=== PATIENT | male | born 1960 | race Caucasian/White ===

== ENCOUNTER 2019-12-13 22:46 | Emergency (ER) | payer OTHER | END 2019-12-13 23:27 | disposition home or self-care (01) | LOC: EDH 22:46 | DX: K40.30 Unilateral inguinal hernia, with obstruction, without gangrene, not specified as recurrent (principal); I10 Essential (primary) hypertension; Z88.8 Allergy status to other drugs, medicaments and biological substances | CPT/HCPCS: 99281 ==

== ENCOUNTER 2023-02-27 11:41 | Emergency (ER) | payer BC ==
[~2023-02-27] VITALS: Ht 177.8 cm; Wt 64.4 kg
[2023-02-27 12:05] VITALS: BP 138/89; PULSE 94; RESP 17
[2023-02-27] MEDS ORDERED: CYCL5TAB PO (13:14)
[2023-02-27] MEDS ORDERED: ACET-2893 PO (13:14)
[2023-02-27] MEDS ORDERED: ACETAMINOPHEN 325 MG TAB ONE (13:24)
[2023-02-27] MEDS ORDERED: CYCLOBENZAPRINE HCL 10 MG TABLET ONE (13:25)
[2023-02-27] MEDS ORDERED: ACETAMINOPHEN 325 MG TAB PO ONE (13:30)
[2023-02-27] MEDS ORDERED: CYCLOBENZAPRINE HCL 10 MG TABLET PO ONE (13:30)
== END 2023-02-27 13:34 | disposition home or self-care (01) ==
LOC: EDH 11:41
DX: M54.42 Lumbago with sciatica, left side (principal); E78.00 Pure hypercholesterolemia, unspecified; I10 Essential (primary) hypertension; K21.9 Gastro-esophageal reflux disease without esophagitis
CPT/HCPCS: 99281

== ENCOUNTER 2023-02-27 16:46 | Emergency (ER) | payer BC ==
[~2023-02-27] VITALS: Ht 177.8 cm; Wt 64.4 kg
[~2023-02-27 16:46] MED LIST: ACET-2893 PO; CYCL5TAB PO
[2023-02-27 17:18] VITALS: BP 150/93; PULSE 85; RESP 19
== END 2023-02-27 20:37 | disposition left against medical advice (07) ==
LOC: EDH 16:46
DX: M76.02 Gluteal tendinitis, left hip (principal); E78.00 Pure hypercholesterolemia, unspecified; I10 Essential (primary) hypertension; K21.9 Gastro-esophageal reflux disease without esophagitis
CPT/HCPCS: 99281

== ENCOUNTER 2024-07-26 13:05 | Inpatient (IN) | payer BC, OTHER ==
[~2024-07-26] VITALS: Ht 177.8 cm; Wt 60.7 kg
[~2024-07-26 13:05] MED LIST changes: -CYCL5TAB PO; +CYCL5TAB3 PO
--- NOTE | 2024-07-26 13:17 | ERN ---
ED Note History of Present Illness Stated Complaint: LT LEG PAIN AND LT FOOT PAIN Chief Complaint: Lower Extremity Pain/Injury Time Seen by MD: 13:07 Dictation: PATIENT IS A 64-YEAR-OLD MALE BEING SENT FROM DR. MCNEILL OFFICE WITH COMPLAINTS OF PAIN AND INTERMITTENT CLAUDICATION TO HIS LEFT LEG FOR 14 MONTHS. STATES IT IS HURTS WHEN HE IS WALKING AND HE HAS NEVER HAD LOOKED AT UNTIL TODAY. HE STATES HIS LEFT FOOT HAS BEEN DISCOLORED. STATES THE PAIN GETS WORSE AFTER ANY LENGTH OF AMBULATION. HISTORY OF HYPERTENSION CAD AND DIABETES. Allergies: Coded Allergies: No Known Drug Allergies (Unverified Allergy, Unknown, 02/27/23) Home Meds Active Scripts Acetaminophen (Acetaminophen ER) 650 Mg Tablet.er, 650 MG PO TID, #30 TAB Prov:GRISELDA KATZ V [facility] 02/27/23 Cyclobenzaprine HCl (Cyclobenzaprine HCl) 5 Mg Tablet, 5 MG PO TID for 3 Days, #9 TAB Prov:GRISELDA KATZ V [employer] TE[employer] 02/27/23 Past Medical History Past Medical History: CAD, GERD, High Cholesterol, Hypertension Additional Past Medical Hx: HERNIA, CHRONIC BACK PAIN Surgical History: None Social History: Smokers RN Note Reviewed/Agreed w/PFSH: Yes Review of System Dictation CONSTITUTIONAL: NEGATIVE EXCEPT FOR HPI HEAD/FACE: NEGATIVE EXCEPT FOR HPI EENT: NEGATIVE EXCEPT FOR HPI RESPIRATORY: NEGATIVE EXCEPT FOR HPI GASTROINTESTINAL/ABDOMINAL: NEGATIVE EXCEPT FOR HPI GENITOURINARY: NEGATIVE EXCEPT FOR HPI MUSCULOSKELETAL: NEGATIVE EXCEPT FOR HPI LEFT LEG PAIN AND CLAUDICATION INTEGUMENTARY: NEGATIVE EXCEPT FOR HPI NEUROLOGICAL/PSYCH: NEGATIVE EXCEPT FOR HPI HEMATOLOGIC/LYMPHATIC: NEGATIVE EXCEPT FOR HPI ALL SYSTEMS NEGATIVE, EXCEPT NOTED ABOVE. 13 POINT REVIEW OF SYSTEMS ASSESSED AND ALL NEGATIVE EXCEPT FOR ABOVE. Initial Vital Sign VS Vital Signs Date Time Temp Pulse Resp B/P (MAP) Pulse Ox O2 Delivery O2 Flow Rate FiO2 07/26/24 13:07 97.0 85 20 129/79 99 0 07/26/24 13:36 Room Air* 21 Physical Exam Dictation VITAL SIGNS REVIEWED GENERAL APPEARANCE: ALERT, ORIENTED X 3, MODERATE ACUTE DISTRESS, WELL DEVELOPED, NOURISHED. HEAD AND FACE: NON-TRAUMATIC. EYES: PERRL, PINK CONJUNCTIVAS, EYELID NO TRAUMA, ANTERIOR CHAMBER WITH ARCUS SENILIS. EARS: PINNAS INTACT AND NO SIGNS OF TRAUMA OR ERYTHEMA EAR CANALS CLEAR AND NO DISCHARGE TM NO ERYTHEMA NOSE: NO DISCHARGE, NO BLEEDING. OROPHARYNX: MOUTH NORMAL, TONGUE PINK, PHARYNX CLEAR,NO ERYTHEMA, TONSILS NO EXUDATES, NO ABSCESSES NOTED, MUCOUS MEMBRANE MOIST NECK: SUPPLE, NON-TENDER, NO THYROMEGALY, NO MASSES, NO JVD, NO BRUITS BREAST:DEFERRED CHEST:NO TENDERNESS, NO CREPITUS, NO PARADOXICAL MOVEMENT, NO RETRACTIONS LUNGS:CLEAR, WELL-VENTILATED, SYMMETRIC, NO RALES, NO WHEEZING, NO RHONCHI, NO STRIDOR, GOOD BREATH SOUNDS BILATERALLY HEART: REGULAR RATE, REGULAR RHYTHM, NO MURMUR, NO GALLOPS VASCULAR: NO PERIPHERAL EDEMA, LEFT LEG WARM TO TOUCH, UNABLE TO PALPATE DISTAL PULSES. CLUBBING NOTED TO TOES LEG IS WARM ABDOMEN: SOFT, POSITIVE BOWEL SOUNDS, NONDISTENDED, NO GUARDING, NONTENDER, NO REBOUND, NO MASSES NO HEPATOMEGALY, NO SPLENOMEGALY, NO SCHMITZ'S SIGN, NO HERNIAS. RECTAL: DEFERRED GENITAL: DEFERRED NEUROLOGICAL: NORMAL SPEECH, MOTOR FUNCTION INTACT, SENSORY FUNCTION INTACT MUSCULOSKELETAL: NECK NONTENDER, FULL RANGE OF MOTION, BACK NONTENDER, FULL RANGE OF MOTION, EXTREMITIES: NONTENDER, FULL RANGE OF MOTION SKIN: COLOR PINK, DRY, NO TURGOR, NO RASH, NO LACERATIONS, NO ABRASIONS, NO CONTUSIONS. LYMPHATIC: DEFERRED Results (Laboratory/Radiology) Laboratory/Radiology Laboratory Tests Test 07/26/24 13:20 White Blood Count 6.5 K/uL (4.8-10.8) Red Blood Count 4.74 MIL/uL (4.50-6.20) Hemoglobin 14.8 g/dL (14.0-18.0) Hematocrit 44.3 % (42-54) Mean Corpuscular Volume 93.5 fL (79-99) Mean Corpuscular Hemoglobin 31.2 pg (27.0-33.0) Mean Corpuscular Hemoglobin Concent 33.4 g/dL (32.0-36.0) Red Cell Distribution Width 15.6 % (11.0-15.5) H Platelet Count 307 K/uL (130-400) Mean Platelet Volume 9.2 fL (7.5-10.5) Immature Granulocyte % (Auto) 0.2 % (0-1) Neutrophils (%) (Auto) 72.8 % (40.0-77.0) Lymphocytes (%) (Auto) 15.6 % (21.0-51.0) L Monocytes (%) (Auto) 8.8 % (3.0-13.0) Eosinophils (%) (Auto) 1.7 % (0.0-8.0) Basophils (%) (Auto) 0.9 % (0.0-5.0) Neutrophils # (Auto) 4.7 K/uL (1.8-7.7) Lymphocytes # (Auto) 1.0 K/uL (1.0-4.8) Monocytes # (Auto) 0.6 K/uL (0.1-1.0) Eosinophils # (Auto) 0.11 K/uL (0.00-0.70) Basophils # (Auto) 0.06 K/uL (0.00-0.20) Absolute Immature Granulocyte (auto 0.01 K/uL (0-1) Nucleated Red Blood Cells 0.0 % (0.0-0.19) Prothrombin Time 10.1 SEC (9.6-11.6) Prothromb Time International Ratio 0.95 (0.85-1.15) Activated Partial Thromboplast Time 28.0 SEC (26.3-35.5) Sodium Level 139 mmol/L (136-145) Potassium Level 3.6 mmol/L (3.5-5.1) Chloride Level 103 mmol/L (101-111) Carbon Dioxide Level 27 mmol/L (21-32) Blood Urea Nitrogen 9 mg/dL (7-18) Creatinine 0.8 mg/dL (0.5-1.3) Glomerular Filtration Rate Calc 100 mL/min (>90) Random Glucose 104 mg/dL (70-105) Total Calcium 9.2 mg/dL (8.5-10.1) Troponin I High Sensitivity 5 ng/L (4-75) US ARTERIAL UNILA LOW EXT DUPL HISTORY: Left lower extremity pain COMPARISON: None TECHNIQUE: Left lower extremity arterial Doppler ultrasound study was performed. FINDINGS: Abnormal monophasic arterial waveforms are noted in the left common femoral, deep femoral, superficial femoral, popliteal, posterior tibial and dorsalis pedal arteries. On the left, the peak systolic velocity of the common femoral artery is 31 cm/s, the proximal femoral artery is 19 cm/s, the mid femoral artery is 43 cm/s, the distal femoral artery is 29 cm/s, the proximal popliteal artery is 24 cm/s, the distal popliteal artery is 75 cm/s, the anterior tibial artery is 12 cm/s, the posterior tibial artery artery is 10 cm/s,and the dorsalis pedal artery is 10 cm/s. IMPRESSION: 1. Atherosclerotic disease. 2. Abnormal monophasic arterial waveforms are noted of the left lower extremity artery system. Labs Reviewed?: Yes EKG Comment: EKG NORMAL SINUS RHYTHM/HEART RATE 61/AXIS NORMAL/NO ECTOPY ED Course ED Course Orders Procedure Category Date Status Time Us Arterial Unila Low US 07/26/24 Resulted Ext Dupl 13:11 Pt And Ptt LAB 07/26/24 Complete 13:11 Cbc With Differential LAB 07/26/24 Complete 13:11 Troponin I High LAB 07/26/24 Complete Sensitivity 13:11 Urinalysis Profile LAB 07/26/24 Logged 13:11 12 Lead Ekg Tracing- EKG 07/26/24 Complete Technical 13:11 Basic Metabolic Panel LAB 07/26/24 Complete 13:11 Morphine 2mg Syg PHA 07/26/24 Complete (Morphine 2mg Syg) 13:30 Ondansetron 4mg Inj PHA 07/26/24 Complete (Zofran 4mg Inj) 13:30 Current Medications Medications (Trade) Dose Ordered Sig/Mari Route PRN Reason Start Time Stop Time Status Last Admin Dose Admin Morphine Sulfate (morPHINE 2MG SYG) 2 mg ONCE ONCE IVP 07/26/24 13:30 07/26/24 13:31 DC 07/26/24 14:53 Ondansetron HCl (zoFRAN 4MG INJ) 4 mg ONCE ONCE IVP 07/26/24 13:30 07/26/24 13:31 DC 07/26/24 14:53 Vital Signs Date Time Temp Pulse Resp B/P (MAP) Pulse Ox O2 Delivery O2 Flow Rate FiO2 07/26/24 13:36 97.0 85 20 129/79 99 Room Air* 0 21 07/26/24 13:07 97.0 85 20 129/79 99 0 1445/PATIENT HAS MONOPHASIC FLOW TO THE LEFT LEG WITH CLAUDICATION WITH PID PATIENT WILL BE ADMITTED TO THE HOSPITAL 1515/SPOKE WITH CAUTION INHALATION THERAPY TEACHER HOSPITALIST AND REVIEWED LABS EKG EKG SHE AGREED TO ADMIT PATIENT TO THE HOSPITAL. HEART Score Response (Comments) Value History: Low suspicion (0) 0 Age: 45-65yrs (+1) 1 Risk Factors: 1-2 risk factors (+1) 1 Initial Troponin: Normal limit (0) 0 Total 2 Medical Decision Making MDM MDM: DIFFERENTIAL DIAGNOSIS: CLAUDICATION/ISCHEMIA/ARTERIAL OCCLUSION/UNCONTROLLED DIABETES/UTI/SEPSIS/ARRHYTHMIA RATIONALE: TESTS CONSIDERED AND ORDERED SECONDARY TO SHARED DECISION MAKING INCLUDE: LABS, ECG AND RADIOLOGY PREVIOUS OUTSIDE RECORDS REVIEWED: OLD ER VISITS. RISK OF COMPLICATION AND/OR MORBIDITY OR MORTALITY OF PATIENT MANAGEMENT: N MODERATE MEDICATIONS-PER MEDICATION RECONCILIATION NEED FOR HOSPITALIZATION: PATIENT DOES MEET CRITERIA FOR HOSPITALIZATION. PATIENT WILL BE ADMITTED FOR ANTICOAGULATION AND CARDIOLOGY CONSULTATION NEED FOR EMERGENCY MAJOR/MINOR SURGERY: NO THERE ARE NO SOCIAL CONCERNS WITH THIS PATIENT. TOBACCO ABUSE PRESCRIPTION DRUG MANAGEMENT PRESCRIPTIONS WILL INCLUDE SYMPTOMATIC CARE PATIENT'S PRIOR EXTERNAL MEDICAL RECORDS FROM OTHER ER VISITS WERE REVIEWED BY ME INDICATED. PRIOR TESTING AND RESULTS FROM PREVIOUS VISITS WERE REVIEWED. PRIOR TESTS WERE TAKEN INTO ACCOUNT WITH MEDICAL DECISION MAKING AND RESOURCE UTILIZATION, INDEPENDENT HISTORIAN/HISTORIANS WERE USED TO OBTAIN COMPLETE MEDICAL HISTORY. I INDEPENDENTLY INTERPRETED THE TEST THAT WERE PERFORMED, RESULTS WERE REVIEWED BY ME AND CONSIDERED FINDINGS ON RADIOLOGY IF ORDERED. MEDICAL MANAGEMENT AND EXAMINATION INTERPRETATION DISCUSSIONS WERE HAD BY ME WITH OTHER QUALIFIED HEALTHCARE PROFESSIONALS INDICATED FOR THE PATIENT'S CARE. DX & DISP Disposition: Inpatient Decision to Admit Time: 14:56 Departure Impression: Primary Impression: Claudication in peripheral vascular disease Additional Impressions: Tobacco abuse, Diabetes mellitus Condition: Stable Referrals: SELF,REFERRAL (PCP) Time of Disposition: 14:56 I have reviewed the case, and I agree with, Diagnosis and Plan ROBBIE MUNGUIA NP Jul 26, 2024 13:17
--- NOTE | 2024-07-26 13:36 | EKG ---
[facility] Test Date: 2024-07-26 Test Time: 13:23:58 Pat Name: KATARZYNA ROBBINS Department: ED Room: 432 Gender: M Hog Raiser: [id number] [phone] [id number] Requested By: ROBBIE MUNGUIA Order Number: [id number] Reading MD: Brad Ortiz Measurements Intervals Topmost Rate: 61 P: 86 UT: 158 QRS: 75 QRSD: 86 T: 58 QT: 405 QTc: 407 Interpretive Statements Sinus rhythm No previous ECG available for comparison Electronically Signed On 07-27-2024 07:01:42 CDT by Brad Ortiz Please click the below link to view image of tracing.
[2024-07-26 14:06] LABS: BASOPHILS # (AUTO) 0.06 K/uL (0.00-0.20); BASOPHILS % (AUTO) 0.9 % (0.0-5.0); EOSINOPHILS # (AUTO) 0.11 K/uL (0.00-0.70); EOSINOPHILS % (AUTO) 1.7 % (0.0-8.0); HEMATOCRIT 44.3 % (42-54); IMMATURE GRANULOCYTE ABSOLUTE 0.01 K/uL (0-1); LYMPHOCYTES % (AUTO) 15.6 % (21.0-51.0); MEAN CORPUSCULAR HEMOGLOBIN 31.2 pg (27.0-33.0); MEAN CORPUSCULAR HGB CONC 33.4 g/dL (32.0-36.0); MEAN CORPUSCULAR VOLUME 93.5 fL (79-99); MONOCYTES # (AUTO) 0.6 K/uL (0.1-1.0); MONOCYTES % (AUTO) 8.8 % (3.0-13.0); NEUTROPHILS # (AUTO) 4.7 K/uL (1.8-7.7); NEUTROPHILS % (AUTO) 72.8 % (40.0-77.0); PLATELET COUNT (AUTO) 307 K/uL (130-400); RED BLOOD CELL COUNT(AUTO) 4.74 MIL/uL (4.50-6.20); RED CELL DISTRIBUTION WIDTH 15.6 % (11.0-15.5); WHITE BLOOD COUNT (AUTO) 6.5 K/uL (4.8-10.8)
--- NOTE | 2024-07-26 14:10 | HMCIMG ---
US ARTERIAL UNILA LOW EXT DUPL HISTORY: Left lower extremity pain COMPARISON: None TECHNIQUE: Left lower extremity arterial Doppler ultrasound study was performed. FINDINGS: Abnormal monophasic arterial waveforms are noted in the left common femoral, deep femoral, superficial femoral, popliteal, posterior tibial and dorsalis pedal arteries. On the left, the peak systolic velocity of the common femoral artery is 31 cm/s, the proximal femoral artery is 19 cm/s, the mid femoral artery is 43 cm/s, the distal femoral artery is 29 cm/s, the proximal popliteal artery is 24 cm/s, the distal popliteal artery is 75 cm/s, the anterior tibial artery is 12 cm/s, the posterior tibial artery artery is 10 cm/s,and the dorsalis pedal artery is 10 cm/s. IMPRESSION: 1. Atherosclerotic disease. 2. Abnormal monophasic arterial waveforms are noted of the left lower extremity artery system.
[2024-07-26 14:16] LABS: INR 0.95 (0.85-1.15); PROTHROMBIN TIME 10.1 SEC (9.6-11.6)
[2024-07-26 14:17] LABS: CREATININE 0.8 mg/dL (0.5-1.3); POTASSIUM 3.6 mmol/L (3.5-5.1)
[2024-07-26] MEDS: morPHINE 2 MG SYG IVP ONE (14:53)
[2024-07-26] MEDS: ondanSETRON 4MG INJ IVP ONE (14:53)
[2024-07-26] MEDS ORDERED: ondanSETRON 4MG INJ IVP PRN (15:30)
[2024-07-26] MEDS ORDERED: PoTASSium chloRIDE 10MEQ/100ML 100 ML IV PRN (16:00)
[2024-07-26] MEDS ORDERED: GLUCAGON 1MG KIT 1 MG ML IM PRN (16:00)
[2024-07-26] MEDS ORDERED: MAGNESIUM 2GM PREMIX 50ML 50 ML IV PRN (16:00)
[2024-07-26] MEDS ORDERED: PoTASSium chloRIDE 20MEQ ER 20 MEQ ERTAB PO PRN (16:00)
[2024-07-26] MEDS ORDERED: morPHINE 2 MG SYG IVP PRN (16:00)
[2024-07-26] MEDS ORDERED: DEXTROSE 50%-WATER 50 ML DISP.SYRIN IV PRN (16:00)
[2024-07-26] MEDS ORDERED: PoTASSium chl 10% ELIXIR 20MEQ 20 MEQ/15 ML UDCUP PO PRN (16:00)
--- NOTE | 2024-07-26 16:12 | NUR ---
CARDIOLOGY DR CHIRINOS MADE AWARE OF PT.
[2024-07-26] MEDS ORDERED: DiphenhydrAMINE HCL 50 MG/ML VIAL IV PRN (16:30)
[2024-07-26] MEDS ORDERED: guaiFENesin-DM 200/20MG 10ML PO PRN (16:30)
[2024-07-26] MEDS ORDERED: NITROGLYCERIN 0.4 MG SL TAB SL PRN (16:30)
[2024-07-26] MEDS: INSULIN humuLIN R 100 UNIT/ML 3ML SQ SCH (16:30)
[2024-07-26] MEDS ORDERED: FAMOTIDINE 20MG VIAL IV PRN (16:30)
[2024-07-26] MEDS ORDERED: acetaMINOPHEN 325 MG TAB PO PRN ×3 (16:30)
[2024-07-26] MEDS ORDERED: MAG/ALUM/SIMETH 30 ML UDCUP PO PRN (16:30)
[2024-07-26] MEDS ORDERED: hydrALAZine 20MG/ML VIAL IV PRN (16:30)
[2024-07-26] MEDS ORDERED: LACTULOSE 20 GM/30 ML UDCUP PO PRN (16:30)
--- NOTE | 2024-07-26 16:58 | HMCIMG ---
CHEST 1VW HISTORY: Congestion COMPARISON: None FINDINGS: A frontal projection of the chest was obtained. No acute pulmonary infiltrates is seen. The heart is normal in size. Prominent interstitial markings are seen. Mild degenerative changes are seen. No evidence of aortic calcification is seen. IMPRESSION: 1. No acute pulmonary infiltrate is seen.
--- NOTE | 2024-07-26 17:04 | NUR ---
RANDA GOSS,[facility],AT BEDSIDE.
[2024-07-26] MEDS: ketOROlac 15MG/ML VIAL (15MG/ML) IV PRN (17:35)
--- NOTE | 2024-07-26 17:47 | CONS ---
[facility] CARDIOLOGY CONSULTATION REPORT Cardiology consultation note dictated for Remberto Chirinos MD Date Patient Seen: Jul 26, 2024 Requesting Physician: Sg Castellanos MD Reason for Consultation: PAD History of Present Illness: This is a 64-year-old with a past medical history of hypertension, hyperlipidemia, TIA, COPD, possible hyperthyroidism, left inguinal hernia, active tobacco abuse (5-7 cigarettes per day), and homelessness who was sent to the ED by his primary care physician from at the [facility] for further evaluation of his severe left lower extremity discomfort. Cardiology has been consulted for PAD. The patient endorsed a 14 month course of LLE discomfort that is exacerbated with minimal pressure to his foot and the slightest touch. He has been using a rolling walker to aid in movement. There are no visible wounds noted. There is no palpable or dopplerable DP or PT pulses to the left foot and it is cool to touch. He is unable to move his left foot's toes but is able to move his ankle slightly. He complains of severe pain and tears up with slight pressure to his left foot. Left lower extremity arterial Doppler revealed abnormal monophasic arterial waveforms in the left common femoral, deep femoral, superficial femoral, popliteal, posterior tibial and dorsalis pedal arteries. Past Medical History: As per HPI and summarized below Past Surgical History: None Family History: The patient's mother had history of diabetes mellitus type 2. The patient's grandfather (mother's father) of an unknown cancer. Social History: The patient is currently homeless. Habits: The patient admits to smoking 5-7 cigarettes per day. He admits to 2-3 beers per year. He denies illicit drug use. Home Meds: None Current Meds: Current Medications Medications Dose Ordered Sig/Mari Start Time Stop Time Status Last Admin Insulin Human Regular INSULIN SLIDING SCAL... ACHS 07/26/24 16:30 08/25/24 16:29 Dextrose 50 ml AD PRN 07/26/24 16:00 08/25/24 15:59 Glucagon 1 mg AD PRN 07/26/24 16:00 08/25/24 15:59 Potassium Chloride 100 ml @ 100 mls/hr AD PRN 07/26/24 16:00 08/25/24 15:59 Potassium Chloride 10 meq AD PRN 07/26/24 16:00 08/25/24 15:59 Potassium Chloride 10 meq AD PRN 07/26/24 16:00 08/25/24 15:59 Magnesium Sulfate 50 ml @ 0 mls/hr PROTOCOL PRN 07/26/24 16:00 08/25/24 15:59 Diphenhydramine HCl 25 mg Q6H PRN 07/26/24 16:30 08/25/24 16:29 Acetaminophen 650 mg Q6H PRN 07/26/24 16:30 08/25/24 16:29 Ondansetron HCl 4 mg Q6H PRN 07/26/24 16:30 08/25/24 16:29 Zolpidem Tartrate 5 mg HS PRN 07/26/24 16:30 08/25/24 16:29 Al Hydroxide/Mg Hydroxide 30 ml Q6H PRN 07/26/24 16:30 08/25/24 16:29 Lactulose 20 gm BID PRN 07/26/24 16:30 08/25/24 16:29 Nitroglycerin 0.4 mg PROTOCOL PRN 07/26/24 16:30 08/25/24 16:29 Guaifenesin/ Dextromethorphan 10 ml Q4H PRN 07/26/24 16:30 08/25/24 16:29 Heparin Sodium (Porcine) 5,000 unit BID 07/26/24 21:00 08/25/24 20:59 Acetaminophen 650 mg Q6H PRN 07/26/24 16:30 08/25/24 16:29 Ketorolac Tromethamine 15 mg Q8H PRN 07/26/24 16:30 07/31/24 16:29 Morphine Sulfate 1 mg Q4H PRN 07/26/24 16:30 08/02/24 16:29 Hydralazine HCl 10 mg Q6H PRN 07/26/24 16:30 08/25/24 16:29 Famotidine 20 mg BID 07/26/24 21:00 08/25/24 20:59 Review of Systems: CONST: No fever, fatigue, or weight changes. EYES: No recent vision problems. ENT: No congestion, ear pain, or sore throat. C/V: No chest pain, palpitations, or edema. RESP: No cough, congestion, wheezing or shortness of breath. GI: No abdominal pain, nausea, vomiting, constipation, or diarrhea. : No incontinence or dysuria. SKIN: No rash. NEURO: No headache, focal numbness or weakness, dizziness, or seizures. PSYCH: No depression or anxiety. HEME: No abnormal bruising or bleeding. LYMPH: No swollen glands. Physical Examination: GENERAL: No acute distress. HEAD: Normal with no signs of head trauma. EYES: PERRLA, EOMI, conjunctiva and sclera normal. ENT: Hearing grossly intact, normal oropharynx. NECK: Supple without JVD. There is no tenderness, lymphadenopathy, or masses. No thyromegaly. Normal carotid upstrokes without bruits. LUNGS: Clear breath sounds bilaterally. No wheezes, or rhonchi. HEART: Normal rate and rhythm. Normal S1 and S2 without murmurs, gallop or rub. VASC: There is no palpable or dopplerable DP or PT pulses to the left foot and it is cool to touch. Right DP by dopper only, PT is non-dopplerable. ABD: Bowel sounds normal, soft, nontender, no masses, no organomegaly. No audible bruits. : Not examined LYMPH: No lymphadenopathy noted. EXT: Clubbing noted to fingernails. No cyanosis or edema. SKIN: No rashes or lesions noted. NEURO: Awake, alert, and oriented x3. No focal sensory or strength deficits noted. Vital Signs (last 8hr) Date Time Temp Pulse Resp B/P (MAP) Pulse Ox O2 Delivery O2 Flow Rate FiO2 07/26/24 17:02 69 18 142/80 97 Room Air* 0 21 07/26/24 14:30 64 20 128/82 96 Room Air* 0 21 07/26/24 13:36 97.0 85 20 129/79 99 Room Air* 0 21 07/26/24 13:07 97.0 85 20 129/79 99 0 Laboratory: Hematology Labs: Test 07/26/24 13:20 Range/Units White Blood Count 6.5 4.8-10.8 K/uL Red Blood Count 4.74 4.50-6.20 MIL/uL Hemoglobin 14.8 14.0-18.0 g/dL Hematocrit 44.3 42-54 % Mean Corpuscular Volume 93.5 79-99 fL Mean Corpuscular Hemoglobin 31.2 27.0-33.0 pg Mean Corpuscular Hemoglobin Concent 33.4 32.0-36.0 g/dL Red Cell Distribution Width 15.6 H 11.0-15.5 % Platelet Count 307 130-400 K/uL Mean Platelet Volume 9.2 7.5-10.5 fL Immature Granulocyte % (Auto) 0.2 0-1 % Neutrophils (%) (Auto) 72.8 40.0-77.0 % Lymphocytes (%) (Auto) 15.6 L 21.0-51.0 % Monocytes (%) (Auto) 8.8 3.0-13.0 % Eosinophils (%) (Auto) 1.7 0.0-8.0 % Basophils (%) (Auto) 0.9 0.0-5.0 % Neutrophils # (Auto) 4.7 1.8-7.7 K/uL Lymphocytes # (Auto) 1.0 1.0-4.8 K/uL Monocytes # (Auto) 0.6 0.1-1.0 K/uL Eosinophils # (Auto) 0.11 0.00-0.70 K/uL Basophils # (Auto) 0.06 0.00-0.20 K/uL Absolute Immature Granulocyte (auto 0.01 0-1 K/uL Nucleated Red Blood Cells 0.0 0.0-0.19 % Chemistry Labs: Test 07/26/24 13:20 Range/Units Sodium Level 139 136-145 mmol/L Potassium Level 3.6 3.5-5.1 mmol/L Chloride Level 103 101-111 mmol/L Carbon Dioxide Level 27 21-32 mmol/L Blood Urea Nitrogen 9 7-18 mg/dL Creatinine 0.8 0.5-1.3 mg/dL Glomerular Filtration Rate Calc 100 >90 mL/min Random Glucose 104 70-105 mg/dL Total Calcium 9.2 8.5-10.1 mg/dL Troponin I High Sensitivity 5 4-75 ng/L Coagulation Labs: Test 07/26/24 13:20 Range/Units Prothrombin Time 10.1 9.6-11.6 SEC Prothromb Time International Ratio 0.95 0.85-1.15 Activated Partial Thromboplast Time 28.0 26.3-35.5 SEC Diagnostics / Radiology: Impression and Plan: PAD HTN HLD TIA COPD Possible hyperthyroidism Active tobacco abuse (5-7 cigarettes per day) Homelessness PAD The patient endorsed a 14 month course of LLE discomfort that is exacerbated with minimal pressure to his foot and the slightest touch. He has been using a rolling walker to aid in movement. There are no visible wounds noted. There is no palpable or dopplerable DP or PT pulses to the left foot and it is cool to touch. He is unable to move his left foot's toes but is able to move his ankle slightly. He complains of severe pain and tears up with slight pressure to his left foot. Left lower extremity arterial Doppler revealed abnormal monophasic arterial waveforms in the left common femoral, deep femoral, superficial femoral, popliteal, posterior tibial and dorsalis pedal arteries. -Will start a Heparin infusion, aspirin 81mg daily, atorvastatin 40mg nightly, and clopidogrel 75mg daily -The patient will need a peripheral angiogram. We will have to see which [facility] associate will be available for such procedure. ATTESTATION BY PHYSICIAN I have seen and examined the patient. I reviewed the documentation, medical decision making, and treatment plan as noted by the mid-level provider above. I agree with the findings and plan of care. REMBERTO CHIRINOS MD, [facility] Jul 26, 2024 17:47 REMBERTO CHIRINOS MD Jul 26, 2024 18:10
[2024-07-26 17:54] LABS: APPEARANCE,URINE CLEAR (CLEAR); BILIRUBIN,URINE NEGATIVE (NEGATIVE); COLOR,URINE COLORLESS (YELLOW); GLUCOSE, URINE (UA) NEGATIVE (NEGATIVE); KETONES,URINE NEGATIVE (NEGATIVE); LEUKOCYTE ESTERASE ,URINE NEGATIVE Leu/uL (NEGATIVE); NITRATE,URINE NEGATIVE (NEGATIVE); OCCULT BLOOD,URINE NEGATIVE (NEGATIVE); PH,URINE 6.5 (5.0-8.0); PROTEIN,URINE NEGATIVE (NEGATIVE); UROBILINOGEN,URINE 0.2 mg/dL (0.2-1.0)
[2024-07-26 17:58] LABS: ADD UA MICROSCOPIC NO
[2024-07-26] MEDS ORDERED: morPHINE 2 MG SYG IVP ONE (18:00)
[2024-07-26 18:14] LABS: INFLUENZA TYPE A Negative For Type A (NEGATIVE); INFLUENZA TYPE B Negative For Type B (NEGATIVE)
--- NOTE | 2024-07-26 18:41 | HMCIMG ---
ULTRASOUND VENOUS DOPPLER, BILATERAL LOWER EXTREMITIES INDICATION: Bilateral lower extremity pain and swelling TECHNIQUE: Routine grayscale and color Doppler ultrasound of the bilateral lower extremity veins performed. COMPARISON: No priors. FINDINGS: The demonstrated veins of the bilateral lower extremity including the common femoral vein, femoral vein, and popliteal vein are associated with normal compressibility, augmentation, and flow. Normal respiratory variation was identified. No evidence for echogenic intraluminal thrombus formation. IMPRESSION: No sonographic evidence for deep venous thrombosis within the bilateral lower extremity veins.
--- NOTE | 2024-07-26 19:49 | NUR ---
HEPARIN PROTOCOL INITIATED AGER TENDERPorfirio on unit. Phone call placed to Maria Kapoor with [facility] to clarify Heparin orders. Per Maria, Heparin bolus to be administered. Order entered. Pharmacy contacted to release Heparin from [facility] for administration. Radha with pharmacy, will process now. Two nurse to initiate Heparin bolus and starting dose
[2024-07-26 19:50] VITALS: BP 150/69; PULSE 58; RESP 20; TEMP 98
--- NOTE | 2024-07-26 19:51 | HP ---
[facility] HISTORY [facility] PHYSICAL Date of Service: Jul 26, 2024 Time of Service: 19:42 PCP:Dr Deena Ivy Admitting: Dr Castellanos, Allergies: No Allergy Information Available, No Known Drug Allergies HISTORY OF PRESENT ILLNESS: [ Patient is 64 years old male with a past medical history of hypertension, hyperlipidemia, TIA, COPD, hypothyroidism, diabetes, left inguinal hernia, ulcerative colitis, BPH, who came to emergency department with a complaint of left lower extremity discomfort for the past 14 months. Patient stated that yesterday he went to his PCP in [facility] on [address] for further evaluation of the left lower extremity discomfort. The patient was evaluated and was instructed to come to emergency department for further evaluation/recommendations. Left lower extremity discomfort is exacerbated with minimal pressure to his foot and slightest touch. Patient has been using a rolling walker to help with the ambulation. No visible wounds noted besides a dry scab on the bottom of the toes and between the toes. No palpable or dopplerable DP or PT pulses to the left foot and that is cool to touch. Patient is able to move his left foot but not as much as he is able to move his right. Left lower extremity Doppler reveals abnormal monophasic arterial waveforms in the left common femoral, deep femoral and superficial femoral, popliteal and posterior tibial and dorsalis pedis arteries. Chest x-ray negative. Venous Doppler negative. 2D echo pending. Patient was evaluated by the art display maker and at this moment they recommending angiogram with Dr. Reyes on . Most recent vital signs temperature 97.0 pulse 75 respiration 18 blood pressure 135/78, patient is satting 99% on room air. WBC 6.5 hemoglobin 14.8 hematocrit 44.3 platelets 307. UA negative. Influenza a and influenza B negative. Sodium 139 potassium 3.6 CO2 27 BUN nine creatinine 0.8 GFR 100 random glucose 104 total calcium 9.2 troponin negative x1. Patient will be admitted under hospitalist care for further amauri luation/recommendations. We will continue to monitor patient. A.m. labs] REVIEW OF SYSTEMS CONSTITUTIONAL: Denies fevers, chills, or night sweats. No unintentional weight loss reported. NEUROLOGICAL: Denies headache, amaurosis fugax, motor weakness, sensory deficit, vertigo/spinning sensation, gait abnormalities, or tremors. ENT: No hearing loss, otalgia, otorrhea, rhinitis, rhinorrhea, hoarseness, or sore throat. CARDIOVASCULAR: Denies any exertional angina, dyspnea on exertion, orthopnea, paroxysmal nocturnal dyspnea, palpitations, life-threatening arrhythmias, claudication. PULMONARY: Denies any shortness of breath, cough, phlegm/sputum, hemoptysis, pleuritic chest pain. SLEEP: Denies morning headaches, daytime somnolence or napping. Denies difficulty falling asleep, staying asleep, waking from sleep. Denies knowledge of snoring. GASTROINTESTINAL: Denies any type of dysphagia to either liquids or solids. Denies nausea, vomiting, pyrosis, early satiety, abdominal pain, diarrhea, constipation, or changes in stool consistency or caliber. Denies coffee-ground emesis, hematemesis, hematochezia, or melanotic stools. GENITOURINARY: Denies frequency, urgency, nocturia, hematuria or incontinence (Storage/Irritative symptoms.) Low urinary stream, straining to void, urinary intermittency or hesitancy, splitting of the voiding stream, terminal dribbling. ENDOCRINOLOGIC: Denies polyuria, polydipsia, polyphagia or heat/cold intolerances. HEMATOLOGIC: Denies thrombophilia/previous clots, or coagulopathy/bleeding disorders. ONCOLOGIC: Denies personal history of malignancy. DERMATOLOGIC: Denies rashes or pruritus. Complains of skin dryness on the left foot close to the toes PSYCHIATRIC: Denies any suicidal or homicidal ideation. Denies hallucinations. PAST MEDICAL HISTORY: [ Prediabetes, hypertension, hyperlipidemia, malnutrition, left inguinal hernia, ulcerative colitis, TIA, BPH, COPD, hyperthyroidism] PAST SURGICAL HISTORY: [ ] PAST SOCIAL HISTORY: [Patient stated that he smokes about one pack Per two weeks. Patient admits to drinking two maybe three beers per year. Patient denies any drug illicit ] FAMILY HISTORY: [ Patient stated that he is homeless [facility] [place]. Patient uses rolling walker for ambulation. ] Coded Allergies: No Known Drug Allergies (Unverified Allergy, Unknown, 02/27/23) PHYSICAL EXAM GENERAL APPEARANCE: The patient is awake, alert, and oriented, in no acute cardiopulmonary distress. NEUROLOGICAL: Cranial nerves II-XII grossly intact. Motor is 5/5 in bilateral upper and lower extremities proximal to distal. No sensory deficits. HEENT: Face is symmetric. Pupils are equal and reactive. Extraocular movements are intact. NECK: Supple. No JVD. No thyromegaly. No submental, submandibular, pre- /postauricular, occipital or supraclavicular lymphadenopathy. CHEST: Normal chest expansion. No Telemetry. LUNGS: Absence of any rales, rhonchi or any wheezing. CARDIOVASCULAR: Regular. S1 and S2 normal. No appreciable rubs, murmurs or gallops. ABDOMEN: Soft, nontender, and nondistended. There is no rebound, voluntary guarding, or rigidity. : Deferred. No Dumont. EXTREMITIES: Non-edematous and not cyanotic. No clubbing. Good capillary refill. SKIN: No skin breakdown. Vital Sign (Last 24 Hours) 07/26/24 17:35 Temp 97.0 Pulse 75 Resp 18 B/P (MAP) 135/78 Pulse Ox 99 O2 Delivery Room Air* O2 Flow Rate 0 FiO2 21 LABS: Laboratory: Test 07/26/24 17:37 07/26/24 17:30 07/26/24 13:20 Range/Units Whole Blood Glucose 97 70-110 MG/DL Urine Color COLORLESS YELLOW Urine Appearance CLEAR CLEAR Urine pH 6.5 5.0-8.0 Urine Specific [place] 1.005 1.001-1.031 Urine Protein NEGATIVE NEGATIVE mg/dL Urine Glucose (UA) NEGATIVE NEGATIVE mg/dL Urine Ketones NEGATIVE NEGATIVE mg/dL Urine Occult Blood NEGATIVE NEGATIVE Urine Nitrate NEGATIVE NEGATIVE Urine Bilirubin NEGATIVE NEGATIVE mg/dL Urine Urobilinogen 0.2 0.2-1.0 mg/dL Urine Leukocyte Esterase NEGATIVE NEGATIVE Wm/uL Influenza Type A Antigen Negative For Type A NEGATIVE Influenza Type B Antigen Negative For Type B NEGATIVE White Blood Count 6.5 4.8-10.8 K/uL Red Blood Count 4.74 4.50-6.20 MIL/uL Hemoglobin 14.8 14.0-18.0 g/dL Hematocrit 44.3 42-54 % Mean Corpuscular Volume 93.5 79-99 fL Mean Corpuscular Hemoglobin 31.2 27.0-33.0 pg Mean Corpuscular Hemoglobin Concent 33.4 32.0-36.0 g/dL Red Cell Distribution Width 15.6 H 11.0-15.5 % Platelet Count 307 130-400 K/uL Mean Platelet Volume 9.2 7.5-10.5 fL Immature Granulocyte % (Auto) 0.2 0-1 % Neutrophils (%) (Auto) 72.8 40.0-77.0 % Lymphocytes (%) (Auto) 15.6 L 21.0-51.0 % Monocytes (%) (Auto) 8.8 3.0-13.0 % Eosinophils (%) (Auto) 1.7 0.0-8.0 % Basophils (%) (Auto) 0.9 0.0-5.0 % Neutrophils # (Auto) 4.7 1.8-7.7 K/uL Lymphocytes # (Auto) 1.0 1.0-4.8 K/uL Monocytes # (Auto) 0.6 0.1-1.0 K/uL Eosinophils # (Auto) 0.11 0.00-0.70 K/uL Basophils # (Auto) 0.06 0.00-0.20 K/uL Absolute Immature Granulocyte (auto 0.01 0-1 K/uL Nucleated Red Blood Cells 0.0 0.0-0.19 % Prothrombin Time 10.1 9.6-11.6 SEC Prothromb Time International Ratio 0.95 0.85-1.15 Activated Partial Thromboplast Time 28.0 26.3-35.5 SEC Sodium Level 139 136-145 mmol/L Potassium Level 3.6 3.5-5.1 mmol/L Chloride Level 103 101-111 mmol/L Carbon Dioxide Level 27 21-32 mmol/L Blood Urea Nitrogen 9 7-18 mg/dL Creatinine 0.8 0.5-1.3 mg/dL Glomerular Filtration Rate Calc 100 >90 mL/min Random Glucose 104 70-105 mg/dL Total Calcium 9.2 8.5-10.1 mg/dL Troponin I High Sensitivity 5 4-75 ng/L Current Medications Medications (Trade) Dose Ordered Sig/Mari Route PRN Reason Start Time Stop Time Status Last Admin Dose Admin Acetaminophen (TYLenol 325MG TAB) 650 mg Q4H PRN PO MILD PAIN (1-3) 07/26/24 16:30 07/26/24 16:10 DC Acetaminophen (TYLenol 325MG TAB) 650 mg Q6H PRN PO MILD PAIN (1-3) 07/26/24 16:30 08/25/24 16:29 Acetaminophen (TYLenol 325MG TAB) 650 mg Q6H PRN PO TEMPERATURE GREATER THAN 101.5 07/26/24 16:30 08/25/24 16:29 Al Hydroxide/Mg Hydroxide (MAALox PLUS 30ML) 30 ml Q6H PRN PO INDIGESTION 07/26/24 16:30 08/25/24 16:29 Aspirin (Aspirin 81mg Ec Tab) 81 mg DAILY PO 07/27/24 09:00 08/26/24 08:59 Atorvastatin Calcium (LIPItor 40MG) 40 mg HS PO 07/26/24 21:00 08/25/24 20:59 Clopidogrel Bisulfate (plaVIX 75MG) 75 mg DAILY PO 07/27/24 09:00 08/26/24 08:59 Dextrose (D50w) 50 ml AD PRN IV HYPOGLYCEMIA PROTOCOL 07/26/24 16:00 08/25/24 15:59 Diphenhydramine HCl (BENAdryl INJ) 25 mg Q6H PRN IV SEVERE ITCHING/RASH 07/26/24 16:30 08/25/24 16:29 Famotidine (Pepcid 20mg Vial) 20 mg BID IV 07/26/24 21:00 08/25/24 20:59 Famotidine (Pepcid 20mg Vial) 20 mg BID PRN IV NAUSEA/VOMITING 07/26/24 16:30 07/26/24 16:10 DC Glucagon (Glucagon 1mg Kit) 1 mg AD PRN IM HYPOGLYCEMIA PROTOCOL 07/26/24 16:00 08/25/24 15:59 Guaifenesin/ Dextromethorphan (RobiTUSSin DM 200/20MG 10ML) 10 ml Q4H PRN PO COUGH 07/26/24 16:30 08/25/24 16:29 Heparin Sodium (Porcine) (HEParin 5,000 UNIT VIAL) *calculation based on ACTUAL B... AD PRN IV HEPARIN PROTOCOL 07/26/24 20:30 08/25/24 20:29 Heparin Sodium (Porcine) (HEParin 5,000 UNIT VIAL) 5,000 unit BID SQ 07/26/24 21:00 07/26/24 17:20 DC Heparin Sodium/ Dextrose 250 ml @ 0 mls/hr PROTOCOL IV 07/26/24 17:30 08/25/24 17:29 Hydralazine HCl (APRESOLine 20MG INJ) 10 mg Q6H PRN IV For:SBP above 160;DBP above 90 07/26/24 16:30 08/25/24 16:29 Insulin Human Regular (humuLIN R 100 UNIT/ML 3ML) INSULIN SLIDING SCAL... ACHS SQ 07/26/24 16:30 08/25/24 16:29 Ketorolac Tromethamine (toRADol) 15 mg Q8H PRN IV MODERATE PAIN (4-6) 07/26/24 16:30 07/31/24 16:29 07/26/24 17:35 15 MG Lactulose (Constulose 20gm/ 30ml Udcup) 20 gm BID PRN PO CONSTIPATION 07/26/24 16:30 08/25/24 16:29 Magnesium Sulfate 50 ml @ 0 mls/hr PROTOCOL PRN IV other 07/26/24 16:00 08/25/24 15:59 Morphine Sulfate (morPHINE 2MG SYG) 1 mg Q4H PRN IVP SEVERE PAIN (7-10) 07/26/24 16:30 08/02/24 16:29 Morphine Sulfate (morPHINE 2MG SYG) 2 mg Q6H6 PRN IVP SEVERE PAIN (7-10) 07/26/24 16:00 07/26/24 16:10 DC Nitroglycerin (Nitrostat) 0.4 mg PROTOCOL PRN SL CHEST PAIN 07/26/24 16:30 08/25/24 16:29 Ondansetron HCl (zoFRAN 4MG INJ) 4 mg Q6H PRN IV NAUSEA/VOMITING 07/26/24 16:30 08/25/24 16:29 Ondansetron HCl (zoFRAN 4MG INJ) 4 mg Q6H PRN IVP NAUSEA/VOMITING 07/26/24 15:30 07/26/24 16:10 DC Potassium Chloride 100 ml @ 100 mls/hr AD PRN IV POTASSIUM PROTOCOL 07/26/24 16:00 08/25/24 15:59 Potassium Chloride (K-Dur/Klor-Con 20meq) 10 meq AD PRN PO POTASSIUM PROTOCOL 07/26/24 16:00 08/25/24 15:59 Potassium Chloride (KCl 10% Elixir 20meq/15ml) 10 meq AD PRN PO POTASSIUM PROTOCOL 07/26/24 16:00 08/25/24 15:59 Zolpidem Tartrate (AmbIEN) 5 mg HS PRN PO INSOMNIA 07/26/24 16:30 08/25/24 16:29 DIAGNOSTICS / RADIOLOGY: [ ] ASSESSMENT: [ Severe PAD with claudication POA Uncontrolled HTN Severe malnutrition Prediabetes Hyperlipidemia Left inguinal hernia Also lot colitis BPH History of TIA COPD not exacerbation hyperthyroidism Active tobacco abuse (5-7 cigarettes per day) Homelessness ] PLAN: [Admit to: Medical-surgical floor Consults: Sr. Merchandise Planner Antibiotics: None Tests: 2D echo Heparin drip NEURO: Minimize central acting medications as possible. Fall Precautions. Well lighted room through the day and minimize interruptions through the night to prevent acute delirium. PULMONARY: Chest x-ray negative Supplemental 02 as needed BiPAP as necessary, for respiratory distress Titrate Fio2 to keep Spo2 > or = 90% DuoNebs and CPT as needed IS hourly while awake for pulmonary hygiene Out of bed to chair as tolerated VAP Bundle Maintain aspiration precautions at all times CARDIOVASCULAR: Possible angiogram pending with Dr. Reyes 07/28/2024 Arterial Doppler abnormal Venous Doppler negative 2D echo pending Follow hemodynamics. Vital signs per facility protocol GI & NUTRITION: Continue nutritional support Aspirations precautions Prokinetic agents and laxatives as needed KIDNEYS & ELECTROLYTES: Strict monitoring of intake and output Daily weights Avoid nephrotoxic agents Monitor electrolytes and replace as needed Goal urine output of 30mL/hr or 0.5mL/kg/hr Medications to be dosed according to renal function. Avoid contrast if possible ENDOCRINE: Maintain blood glucose between 100-180 at all times. Insulin sliding scale for blood glucose management Hypoglycemia and hyperglycemia protocol in place INFECTIOUS DISEASE: Trend temperature, WBC and procalcitonin level Follow cultures, deescalate antibiotics as soon as possible. Panculture if new onset fever HEMATOLOGY & COAGULATION: Monitor H&H. Keep Hgb > 7 Transfuse 1 unit of PRBC for Hgb < 7 Transfuse 1 pack of platelets of platelets < 20, 000 Watch for any signs and symptoms of bleeding SKIN: Pressure ulcer prevention per facility protocol Specialty mattress as needed Treatment plan discussed with patient and family at the bedside Medications to be reconciled once obtained by patient and/or family and available to be reconciled in computer p.r.n. medication for pain nausea and vomiting Questions were answered We will continue to monitor the patient closely Sizing Sponger for disposition Rehab: PT/OT GI: PPI DVT: SCD's Code Status: Full Resuscitation Disposition: TBD Prognosis: Guarded ] ADVANCED CARE PLANNING 1. Which of the following were discussed? Hospice Care - Yes / No Therapeutic options - Yes / No Advance Directives - Yes / No Other discussions - 2. Discussed with who? Patient 3. Voluntary nature of this service was explained to the patient? Yes / No 4. Amount of time spent - __ more than 35 minute 5. Reviewed by Physician? (if this service was performed by NPP) Yes / No ATTESTATION BY PHYSICIAN I have seen and examined the patient. I reviewed the documentation, medical decision making, and treatment plan as noted by the mid-level provider above. I agree with the findings and plan of care. BERNADETTE CASTELLANOS MD, KATARZYNA B PACKAGE CLERK Jul 26, 2024 19:51
[2024-07-26 20:04] LABS: BASOPHILS # (AUTO) 0.06 K/uL (0.00-0.20); BASOPHILS % (AUTO) 0.9 % (0.0-5.0); EOSINOPHILS # (AUTO) 0.18 K/uL (0.00-0.70); EOSINOPHILS % (AUTO) 2.6 % (0.0-8.0); HEMATOCRIT 44.5 % (42-54); IMMATURE GRANULOCYTE ABSOLUTE 0.01 K/uL (0-1); LYMPHOCYTES # (AUTO) 1.6 K/uL (1.0-4.8); LYMPHOCYTES % (AUTO) 22.6 % (21.0-51.0); MEAN CORPUSCULAR HGB CONC 33.5 g/dL (32.0-36.0); MEAN CORPUSCULAR VOLUME 92.7 fL (79-99); MONOCYTES # (AUTO) 0.8 K/uL (0.1-1.0); NEUTROPHILS # (AUTO) 4.4 K/uL (1.8-7.7); NEUTROPHILS % (AUTO) 62.8 % (40.0-77.0); PLATELET COUNT (AUTO) 276 K/uL (130-400); RED CELL DISTRIBUTION WIDTH 15.6 % (11.0-15.5); WHITE BLOOD COUNT (AUTO) 6.9 K/uL (4.8-10.8)
[2024-07-26] MEDS: HEParin 5,000 UNIT VIAL IV PRN (20:05)
[2024-07-26] MEDS: HEParin 25,000 UNITS/250ML D5W 250 ML IV SCH (20:07)
[2024-07-26] MEDS: FAMOTIDINE 20MG VIAL IV SCH (21:00)
[2024-07-26] MEDS ORDERED: HEParin 5,000 UNIT VIAL SQ SCH (21:00)
[2024-07-26] MEDS: atorVAStatin 40 MG TABLET PO SCH (21:00)
[2024-07-26 23:39] VITALS: BP 134/96; PULSE 64; RESP 19; TEMP 98.3
[2024-07-27 00:54] VITALS: O2SAT 95
[2024-07-27] MEDS: ZOLPidem TARTrate 5 MG TAB PO PRN (01:09)
[2024-07-27 04:10] VITALS: BP 129/66; PULSE 75; RESP 21; TEMP 97.9
[2024-07-27 06:02] LABS: BASOPHILS # (AUTO) 0.08 K/uL (0.00-0.20); BASOPHILS % (AUTO) 1.4 % (0.0-5.0); EOSINOPHILS # (AUTO) 0.22 K/uL (0.00-0.70); HEMATOCRIT 44.8 % (42-54); IMMATURE GRANULOCYTE ABSOLUTE 0.02 K/uL (0-1); LYMPHOCYTES # (AUTO) 1.5 K/uL (1.0-4.8); LYMPHOCYTES % (AUTO) 26.8 % (21.0-51.0); MEAN CORPUSCULAR HGB CONC 33.3 g/dL (32.0-36.0); MEAN CORPUSCULAR VOLUME 93.3 fL (79-99); MONOCYTES # (AUTO) 0.6 K/uL (0.1-1.0); MONOCYTES % (AUTO) 10.8 % (3.0-13.0); NEUTROPHILS # (AUTO) 3.2 K/uL (1.8-7.7); NEUTROPHILS % (AUTO) 56.6 % (40.0-77.0); PLATELET COUNT (AUTO) 265 K/uL (130-400); RED CELL DISTRIBUTION WIDTH 15.6 % (11.0-15.5); WHITE BLOOD COUNT (AUTO) 5.6 K/uL (4.8-10.8)
[2024-07-27 06:27] LABS: ALBUMIN 3.4 g/dL (3.5-5.0); BILIRUBIN,DIRECT 0.1 mg/dL (0.0-0.3); BILIRUBIN,TOTAL 0.4 mg/dL (0.2-1.0); CREATININE 0.7 mg/dL (0.5-1.3); MAGNESIUM 2.1 mg/dL (1.80-2.40); POTASSIUM 4.1 mmol/L (3.5-5.1); TOTAL PROTEIN, SERUM 6.2 g/dL (6.0-8.3)
[2024-07-27 06:33] LABS: B-TYPE NATRIURETIC PEPTIDE 12 pg/mL (0-100)
--- NOTE | 2024-07-27 06:41 | PN ---
[facility] Cardiology Progress Note CARDIOLOGY PROGRESS NOTE JULY 27, 2024 Problems: 1. Peripheral arterial disease with resting claudication of the left leg and monophasic waveforms in the left common femoral deep femoral superficial femoral popliteal posterior tibial and dorsalis pedis arteries 2. Hypertension 3. Dyslipidemia 4. Remote history of TIA 5. COPD 6. Possible hyperthyroidism 7. Tobacco dependence 8. Homeless status followed at the [facility] on ranging reveal for primary care Blood pressure is running 130/60 heart rate in the 70s the patient is afebrile. White count is 5.6 hemoglobin 14.9 platelet count [id number]. Potassium 4.1 BUN eight creatinine 0.7. INR of 0.95. The patient continues on aspirin atorvastatin clopidogrel heparin protocol potassium protocol and insulin scale. I have discussed percutaneous intervention with him. We are scheduling for aortic runoff study and possible percutaneous intervention with Dr. Eric islas. Dr. Reyes is currently out of town and need to confirm with him tomorrow whether he can do the procedure on or Thursday. REMBERTO CHIRINOS MD Jul 27, 2024 06:41
[2024-07-27] MEDS: 0.9%NACL 1000ML 1,000 ML IV SCH (07:00)
[2024-07-27 08:00] VITALS: BP 124/81; PULSE 80; RESP 18; TEMP 98.3; O2SAT 96
[2024-07-27] MEDS: ASPIRIN 81 MG EC TAB PO SCH (08:41)
[2024-07-27] MEDS: cloPIDOgrel 75MG TAB PO SCH (08:41)
[2024-07-27 08:50] LABS: HEMOGLOBIN A1C 5.5 % (4.0-6.0)
[2024-07-27 09:19] LABS: INR 0.99 (0.85-1.15); PROTHROMBIN TIME 10.5 SEC (9.6-11.6)
[2024-07-27 09:20] LABS: PARTIAL THROMBOPLASTIN TIME 53.4 SEC (26.3-35.5)
--- NOTE | 2024-07-27 10:20 | PN ---
[facility] PROGRESS NOTE Date of Service: Jul 27, 2024 Time of Service: 10:[address] Castellanos SUBJECTIVE: [ 07/26/24 Patient is 64 years old male with a past medical history of hypertension, hyperlipidemia, TIA, COPD, hypothyroidism, diabetes, left inguinal hernia, ulcerative colitis, BPH, who came to emergency department with a complaint of left lower extremity discomfort for the past 14 months. Patient stated that yesterday he went to his PCP in [facility] on [address] for further evaluation of the left lower extremity discomfort. The patient was evaluated and was instructed to come to emergency department for f urther evaluation/recommendations. Left lower extremity discomfort is exacerbated with minimal pressure to his foot and slightest touch. Patient has been using a rolling walker to help with the ambulation. No visible wounds noted besides a dry scab on the bottom of the toes and between the toes. No palpable or dopplerable DP or PT pulses to the left foot and that is cool to stephanie ch. Patient is able to move his left foot but not as much as he is able to move his right. Left lower extremity Doppler reveals abnormal monophasic arterial waveforms in the left common femoral, deep femoral and superficial femoral, popliteal and posterior tibial and dorsalis pedis arteries. Chest x-ray negative. Venous Doppler negative. 2D echo pending. Patient was evaluated by the grade checker and at this moment they recommending angiogram with Dr. Reyes on . Most recent vital signs temperature 97.0 pulse 75 respiration 18 blood pressure 135/78, patient is satting 99% on room air. WBC 6.5 hemoglobin 14.8 hematocrit 44.3 platelets 307. UA negative. Influenza a and influenza B negative. Sodium 139 potassium 3.6 CO2 27 BUN nine creatinine 0.8 GFR 100 random glucose 104 total calcium 9.2 troponin negative x1. 07/27/24 patient was seen by nurse practitioner and physician during rounding in room 432. As per grade checker who evaluated patient yesterday patient continues on heparin drip and that is pending aortic runoff study with a possible percutaneous intervention by Dr. Reyes or Thursday once he will come back from vacation. 2D echo is still pending. We will continue to monitor patient in the meantime. A.m. labs.] REVIEW OF SYSTEMS CONSTITUTIONAL: Denies fevers, chills, or night sweats. No unintentional weight loss reported. NEUROLOGICAL: Denies headache, amaurosis fugax, motor weakness, sensory deficit, vertigo/spinning sensation, gait abnormalities, or tremors. ENT: No hearing loss, otalgia, otorrhea, rhinitis, rhinorrhea, hoarseness, or sore throat. CARDIOVASCULAR: Denies any exertional angina, dyspnea on exertion, orthopnea, paroxysmal nocturnal dyspnea, palpitations, life-threatening arrhythmias, claudication. PULMONARY: Denies any shortness of breath, cough, phlegm/sputum, hemoptysis, pleuritic chest pain. SLEEP: Denies morning headaches, daytime somnolence or napping. Denies difficulty falling asleep, staying asleep, waking from sleep. Denies knowledge of snoring. GASTROINTESTINAL: Denies any type of dysphagia to either liquids or solids. Denies nausea, vomiting, pyrosis, early satiety, abdominal pain, diarrhea, constipation, or changes in stool consistency or caliber. Denies coffee-ground emesis, hematemesis, hematochezia, or melanotic stools. GENITOURINARY: Denies frequency, urgency, nocturia, hematuria or incontinence (Storage/Irritative symptoms.) Low urinary stream, straining to void, urinary intermittency or hesitancy, splitting of the voiding stream, terminal dribbling. ENDOCRINOLOGIC: Denies polyuria, polydipsia, polyphagia or heat/cold intolerances. HEMATOLOGIC: Denies thrombophilia/previous clots, or coagulopathy/bleeding disorders. ONCOLOGIC: Denies personal history of malignancy. DERMATOLOGIC: Denies rashes or pruritus. Complains of skin dryness on the left foot close to the toes PSYCHIATRIC: Denies any suicidal or homicidal ideation. Denies hallucinations. PHYSICAL EXAM GENERAL APPEARANCE: The patient is awake, alert, and oriented, in no acute cardiopulmonary distress. NEUROLOGICAL: Cranial nerves II-XII grossly intact. Motor is 5/5 in bilateral upper and lower extremities proximal to distal. No sensory deficits. HEENT: Face is symmetric. Pupils are equal and reactive. Extraocular movements are intact. NECK: Supple. No JVD. No thyromegaly. No submental, submandibular, pre- /postauricular, occipital or supraclavicular lymphadenopathy. CHEST: Normal chest expansion. No Telemetry. LUNGS: Absence of any rales, rhonchi or any wheezing. CARDIOVASCULAR: Regular. S1 and S2 normal. No appreciable rubs, murmurs or gallops. ABDOMEN: Soft, nontender, and nondistended. There is no rebound, voluntary guarding, or rigidity. : Deferred. No Dumont. EXTREMITIES: Non-edematous and not cyanotic. No clubbing. Good capillary refill. SKIN: No skin breakdown. Vital Signs (last 8hr) Date Time Temp Pulse Resp B/P (MAP) Pulse Ox O2 Delivery O2 Flow Rate FiO2 07/27/24 08:00 98.2 80 18 124/81 96 Room Air 07/27/24 04:10 97.9 75 21 129/66 98 Room Air LABS: Laboratory: Test 07/27/24 08:50 07/27/24 05:44 07/27/24 05:43 07/26/24 17:30 Range/Units Prothrombin Time 10.5 9.6-11.6 SEC Prothromb Time International Ratio 0.99 0.85-1.15 Activated Partial Thromboplast Time 53.4 #H 26.3-35.5 SEC Whole Blood Glucose 89 70-110 MG/DL White Blood Count 5.6 4.8-10.8 K/uL Red Blood Count 4.80 4.50-6.20 MIL/uL Hemoglobin 14.9 14.0-18.0 g/dL Hematocrit 44.8 42-54 % Mean Corpuscular Volume 93.3 79-99 fL Mean Corpuscular Hemoglobin 31.0 27.0-33.0 pg Mean Corpuscular Hemoglobin Concent 33.3 32.0-36.0 g/dL Red Cell Distribution Width 15.6 H 11.0-15.5 % Platelet Count 265 130-400 K/uL Mean Platelet Volume 9.1 7.5-10.5 fL Immature Granulocyte % (Auto) 0.4 0-1 % Neutrophils (%) (Auto) 56.6 40.0-77.0 % Lymphocytes (%) (Auto) 26.8 21.0-51.0 % Monocytes (%) (Auto) 10.8 3.0-13.0 % Eosinophils (%) (Auto) 4.0 0.0-8.0 % Basophils (%) (Auto) 1.4 0.0-5.0 % Neutrophils # (Auto) 3.2 1.8-7.7 K/uL Lymphocytes # (Auto) 1.5 1.0-4.8 K/uL Monocytes # (Auto) 0.6 0.1-1.0 K/uL Eosinophils # (Auto) 0.22 0.00-0.70 K/uL Basophils # (Auto) 0.08 0.00-0.20 K/uL Absolute Immature Granulocyte (auto 0.02 0-1 K/uL Nucleated Red Blood Cells 0.0 0.0-0.19 % Sodium Level 140 136-145 mmol/L Potassium Level 4.1 3.5-5.1 mmol/L Chloride Level 105 101-111 mmol/L Carbon Dioxide Level 25 21-32 mmol/L Blood Urea Nitrogen 8 7-18 mg/dL Creatinine 0.7 0.5-1.3 mg/dL Glomerular Filtration Rate Calc 104 >90 mL/min Random Glucose 95 70-105 mg/dL Hemoglobin A1c 5.5 4.0-6.0 % Estimated Average Glucose (eAG) 111 70-126 mg/dL Lactic Acid Level 1.1 0.8-2.5 mmol/L Total Calcium 8.9 8.5-10.1 mg/dL Magnesium Level 2.10 1.80-2.40 mg/dL Total Bilirubin 0.4 0.2-1.0 mg/dL Direct Bilirubin 0.1 0.0-0.3 mg/dL Aspartate Amino Transf (AST/SGOT) 23 10-37 U/L Alanine Aminotransferase (ALT/SGPT) 20 12-78 U/L Alkaline Phosphatase 81 50-136 U/L Ammonia 33 H 11-32 umol/L Total Creatine Kinase 112 21-232 U/L Troponin I High Sensitivity 7.6 4-75 ng/L B-Type Natriuretic Peptide 12 0-100 pg/mL Total Protein 6.2 6.0-8.3 g/dL Albumin 3.4 L 3.5-5.0 g/dL Procalcitonin < 0.05 L 0.05-0.5 ng/mL Urine Color COLORLESS YELLOW Urine Appearance CLEAR CLEAR Urine pH 6.5 5.0-8.0 Urine Specific [place] 1.005 1.001-1.031 Urine Protein NEGATIVE NEGATIVE mg/dL Urine Glucose (UA) NEGATIVE NEGATIVE mg/dL Urine Ketones NEGATIVE NEGATIVE mg/dL Urine Occult Blood NEGATIVE NEGATIVE Urine Nitrate NEGATIVE NEGATIVE Urine Bilirubin NEGATIVE NEGATIVE mg/dL Urine Urobilinogen 0.2 0.2-1.0 mg/dL Urine Leukocyte Esterase NEGATIVE NEGATIVE Wm/uL Influenza Type A Antigen Negative For Type A NEGATIVE Influenza Type B Antigen Negative For Type B NEGATIVE Current Medications Medications (Trade) Dose Ordered Sig/Mari Route PRN Reason Start Time Stop Time Status Last Admin Dose Admin Acetaminophen (TYLenol 325MG TAB) 650 mg Q4H PRN PO MILD PAIN (1-3) 07/26/24 16:30 07/26/24 16:10 DC Acetaminophen (TYLenol 325MG TAB) 650 mg Q6H PRN PO MILD PAIN (1-3) 07/26/24 16:30 08/25/24 16:29 Acetaminophen (TYLenol 325MG TAB) 650 mg Q6H PRN PO TEMPERATURE GREATER THAN 101.5 07/26/24 16:30 08/25/24 16:29 Al Hydroxide/Mg Hydroxide (MAALox PLUS 30ML) 30 ml Q6H PRN PO INDIGESTION 07/26/24 16:30 08/25/24 16:29 Aspirin (Aspirin 81mg Ec Tab) 81 mg DAILY PO 07/27/24 09:00 08/26/24 08:59 07/27/24 08:41 81 MG Atorvastatin Calcium (LIPItor 40MG) 40 mg HS PO 07/26/24 21:00 08/25/24 20:59 07/26/24 21:00 40 MG Clopidogrel Bisulfate (plaVIX 75MG) 75 mg DAILY PO 07/27/24 09:00 08/26/24 08:59 07/27/24 08:41 75 MG Dextrose (D50w) 50 ml AD PRN IV HYPOGLYCEMIA PROTOCOL 07/26/24 16:00 08/25/24 15:59 Diphenhydramine HCl (BENAdryl INJ) 25 mg Q6H PRN IV SEVERE ITCHING/RASH 07/26/24 16:30 08/25/24 16:29 Famotidine (Pepcid 20mg Vial) 20 mg BID IV 07/26/24 21:00 08/25/24 20:59 07/27/24 08:41 20 MG Famotidine (Pepcid 20mg Vial) 20 mg BID PRN IV NAUSEA/VOMITING 07/26/24 16:30 07/26/24 16:10 DC Glucagon (Glucagon 1mg Kit) 1 mg AD PRN IM HYPOGLYCEMIA PROTOCOL 07/26/24 16:00 08/25/24 15:59 Guaifenesin/ Dextromethorphan (RobiTUSSin DM 200/20MG 10ML) 10 ml Q4H PRN PO COUGH 07/26/24 16:30 08/25/24 16:29 Heparin Sodium (Porcine) (HEParin 5,000 UNIT VIAL) *calculation based on ACTUAL B... AD PRN IV HEPARIN PROTOCOL 07/26/24 20:30 08/25/24 20:29 07/26/24 20:05 5,000 UNIT Heparin Sodium (Porcine) (HEParin 5,000 UNIT VIAL) 5,000 unit BID SQ 07/26/24 21:00 07/26/24 17:20 DC Heparin Sodium/ Dextrose 250 ml @ 0 mls/hr PROTOCOL IV 07/26/24 17:30 08/25/24 17:29 07/27/24 04:40 9.74 MLS/HR Hydralazine HCl (APRESOLine 20MG INJ) 10 mg Q6H PRN IV For:SBP above 160;DBP above 90 07/26/24 16:30 08/25/24 16:29 Insulin Human Regular (humuLIN R 100 UNIT/ML 3ML) INSULIN SLIDING SCAL... ACHS SQ 07/26/24 16:30 08/25/24 16:29 Ketorolac Tromethamine (toRADol) 15 mg Q8H PRN IV MODERATE PAIN (4-6) 07/26/24 16:30 07/31/24 16:29 07/26/24 17:35 15 MG Lactulose (Constulose 20gm/ 30ml Udcup) 20 gm BID PRN PO CONSTIPATION 07/26/24 16:30 08/25/24 16:29 Magnesium Sulfate 50 ml @ 0 mls/hr PROTOCOL PRN IV other 07/26/24 16:00 08/25/24 15:59 Morphine Sulfate (morPHINE 2MG SYG) 1 mg Q4H PRN IVP SEVERE PAIN (7-10) 07/26/24 16:30 08/02/24 16:29 Morphine Sulfate (morPHINE 2MG SYG) 2 mg Q6H6 PRN IVP SEVERE PAIN (7-10) 07/26/24 16:00 07/26/24 16:10 DC Nitroglycerin (Nitrostat) 0.4 mg PROTOCOL PRN SL CHEST PAIN 07/26/24 16:30 08/25/24 16:29 Ondansetron HCl (zoFRAN 4MG INJ) 4 mg Q6H PRN IV NAUSEA/VOMITING 07/26/24 16:30 08/25/24 16:29 Ondansetron HCl (zoFRAN 4MG INJ) 4 mg Q6H PRN IVP NAUSEA/VOMITING 07/26/24 15:30 07/26/24 16:10 DC Potassium Chloride 100 ml @ 100 mls/hr AD PRN IV POTASSIUM PROTOCOL 07/26/24 16:00 08/25/24 15:59 Potassium Chloride (K-Dur/Klor-Con 20meq) 10 meq AD PRN PO POTASSIUM PROTOCOL 07/26/24 16:00 08/25/24 15:59 Potassium Chloride (KCl 10% Elixir 20meq/15ml) 10 meq AD PRN PO POTASSIUM PROTOCOL 07/26/24 16:00 08/25/24 15:59 Sodium Chloride 1,000 ml @ 100 mls/hr Q10H IV 07/27/24 07:00 08/26/24 06:59 Zolpidem Tartrate (AmbIEN) 5 mg HS PRN PO INSOMNIA 07/26/24 16:30 08/25/24 16:29 07/27/24 01:09 5 MG DIAGNOSTICS / RADIOLOGY: [ ] ASSESSMENT: [ Severe PAD with claudication POA Uncontrolled HTN Severe malnutrition Prediabetes Hyperlipidemia Left inguinal hernia ulcerative colitis BPH History of TIA COPD not exacerbation hyperthyroidism Active tobacco abuse (5-7 cigarettes per day) Homelessness ] PLAN: [Admit to: Medical-surgical floor Consults: Incoming Inspector Antibiotics: None Tests: 2D echo Heparin drip NEURO: Minimize central acting medications as possible. Fall Precautions. Well lighted room through the day and minimize interruptions through the night to prevent acute delirium. PULMONARY: Chest x-ray negative Supplemental 02 as needed BiPAP as necessary, for respiratory distress Titrate Fio2 to keep Spo2 > or = 90% DuoNebs and CPT as needed IS hourly while awake for pulmonary hygiene Out of bed to chair as tolerated VAP Bundle Maintain aspiration precautions at all times CARDIOVASCULAR: Possible aortic runoff study with a possible percutaneous intervention pending with Dr. Reyes 07/28/2024 Arterial Doppler abnormal Venous Doppler negative 2D echo pending Follow hemodynamics. Vital signs per facility protocol GI & NUTRITION: Continue nutritional support Aspirations precautions Prokinetic agents and laxatives as needed KIDNEYS & ELECTROLYTES: Strict monitoring of intake and output Daily weights Avoid nephrotoxic agents Monitor electrolytes and replace as needed Goal urine output of 30mL/hr or 0.5mL/kg/hr Medications to be dosed according to renal function. Avoid contrast if possible ENDOCRINE: Maintain blood glucose between 100-180 at all times. Insulin sliding scale for blood glucose management Hypoglycemia and hyperglycemia protocol in place INFECTIOUS DISEASE: Trend temperature, WBC and procalcitonin level Follow cultures, deescalate antibiotics as soon as possible. Panculture if new onset fever HEMATOLOGY & COAGULATION: Monitor H&H. Keep Hgb > 7 Transfuse 1 unit of PRBC for Hgb < 7 Transfuse 1 pack of platelets of platelets < 20, 000 Watch for any signs and symptoms of bleeding SKIN: Pressure ulcer prevention per facility protocol Specialty mattress as needed Treatment plan discussed with patient and family at the bedside Medications to be reconciled once obtained by patient and/or family and available to be reconciled in computer p.r.n. medication for pain nausea and vomiting Questions were answered We will continue to monitor the patient closely Air Conditioning Unit Assembler for disposition Rehab: PT/OT GI: PPI DVT: SCD's Code Status: Full Resuscitation Disposition: TBD Prognosis: Guarded ] ATTESTATION BY PHYSICIAN I have seen and examined the patient. I reviewed the documentation, medical decision making, and treatment plan as noted by the mid-level provider above. I agree with the findings and plan of care. BERNADETTE CASTELLANOS MD, KATARZYNA B INSTRUMENT REPAIRER HELPER Jul 27, 2024 10:20
--- NOTE | 2024-07-27 10:54 | NUR ---
DCP: HOMELESS- [address] Pt has been homeless for 2yrs, since passing of his . Pt spends most of his time on [facility] near [facility] and [facility] with his dog Skippy. Pt has a walker with seat and no other services. Pt is seen at [facility] for medical care and meds. Pt has been staying at [address] as arranged by his friend Cecilia [phone], and he will return here at mt. Pt reports he has been denied SSI 3x and needs assistance with re applying. Sw provide information for Sommer Vergara and made referral to Anu at [facility] for possible assistance Addendum: 07/27/24 at 1124 by ROGERS COLBY Amended: Links added.
[2024-07-27 11:57] VITALS: BP 155/92; PULSE 69; RESP 17; TEMP 98.1
--- NOTE | 2024-07-27 14:50 | NUR ---
PER PROTOCOL, HEPARIN RATE REMAINED AT RATE OF 9.47ML/HR. CURRENT HEPARIN BAG INFUSING NOT DUE FOR CHANGE
[2024-07-27] MEDS: morPHINE 2 MG SYG IVP PRN (15:03)
[2024-07-27 16:00] VITALS: BP 148/94; PULSE 71; RESP 19; TEMP 99.5
[2024-07-27 20:00] VITALS: BP 128/68; PULSE 53; RESP 17; TEMP 98.5; O2SAT 96
--- NOTE | 2024-07-27 21:04 | HMCSR ---
APPROVED REPORT EXAM: Two-dimensional and M-mode echocardiogram with Doppler and color Doppler. INDICATION ICD: Congestive heart failure 2D Dimensions RVDd3.6 cmLVEF(%)24.6 (>50%)LVEF(%, simp.)59 % IVSd0.6 (0.7-1.1cm)FS(%)11 %LA ESV INDEX (BP)27.49 mL/m2 LVDd4.3 (3.8-5.6cm)LVOT diam2.1 (1.8-2.4cm) PWd0.7 (0.7-1.1cm)IVC diam1.9 cm IVSs0.8 cm LVDs3.9 (2.5-4.0cm) PWs0.7 cm Deformation Strain Apical 4-19.0 % Apical 2-22.0 % Apical 3-23.0 % Global Strain-21.0 % Aortic Valve AoV Vmax1.3 m/Jess Peak GR6.4 mmHgLVOT Vmax1.0 m/s AoV VTI0.3 mAo Mean GR3.3 mmHgLVOT VTI0.18 m JOHN (VMAX)2.4 cm2AVA (VTI) 2.4 cm2 Mitral Valve MV E Vmax66.9 cm/sDECEL Gptu277 ms MV A Vmax47.4 cm/sP 1/2 T51 ms E/A ratio1.4MVA (PHT)4.3 cm2 TDI E/E' Medial5.1E/E' Lateral4.5 Medial E' Peak V13.00 cm/sLateral E' Peak V15.00 cm/s Pulmonary Valve PV Vmax1.0 m/s Tricuspid Valve TR Vmax2.4 m/sRAP (EST) 3 erSzGACT46.7 mmHg TR Peak GR23.7 mmHg Left Ventricle The left ventricle is normal size. GLS 21.0%. There is normal LV segmental wall motion. There is norm al left ventricular wall thickness. LVEF is 50-55%. The left ventricular diastolic function is normal . Right Ventricle The right ventricle is normal size. RV FAC 34%. The right ventricular systolic function is normal. Atria The left atrium size is normal. The right atrium is mildly dilated. Aortic Valve The aortic valve is normal in structure. No aortic regurgitation is present. There is no aortic valvu lar stenosis. Mitral Valve The mitral valve is normal in structure. There is trace mitral valve regurgitation noted. There is no mitral valve stenosis. Tricuspid Valve The tricuspid valve is normal in structure. There is trace of tricuspid valve regurgitation noted. No rmal RVSP estimate. Pulmonic Valve The pulmonary valve is normal in structure. There is no pulmonic valvular regurgitation. Great Vessels The aortic root is normal in size. The IVC is normal in size and collapses >50% with inspiration. Pericardium There is no pericardial effusion. Conclusion The left ventricle is normal size. There is normal left ventricular wall thickness. GLS 21.0%. There is normal LV segmental wall motion. LVEF is 50-55%. The left ventricular diastolic function is normal. The aortic valve is normal in structure. There is trace mitral valve regurgitation noted. There is trace of tricuspid valve regurgitation noted. Normal RVSP estimate. There is no pericardial effusion.
[2024-07-27] MEDS: ondanSETRON 4MG INJ IV PRN (23:58)
[2024-07-28] VITALS (14 sets, daily range): BP systolic 124–167; BP diastolic 73–109; PULSE 48–79; RESP 17–18; TEMP 97.7–98.4; O2SAT 99
[2024-07-28 05:39] LABS: BASOPHILS # (AUTO) 0.07 K/uL (0.00-0.20); EOSINOPHILS % (AUTO) 2.8 % (0.0-8.0); HEMATOCRIT 46.2 % (42-54); IMMATURE GRANULOCYTE ABSOLUTE 0.03 K/uL (0-1); LYMPHOCYTES # (AUTO) 1.8 K/uL (1.0-4.8); LYMPHOCYTES % (AUTO) 24.5 % (21.0-51.0); MEAN CORPUSCULAR HGB CONC 33.3 g/dL (32.0-36.0); MEAN CORPUSCULAR VOLUME 93.1 fL (79-99); MONOCYTES # (AUTO) 0.7 K/uL (0.1-1.0); MONOCYTES % (AUTO) 8.9 % (3.0-13.0); NEUTROPHILS # (AUTO) 4.5 K/uL (1.8-7.7); NEUTROPHILS % (AUTO) 62.4 % (40.0-77.0); PLATELET COUNT (AUTO) 288 K/uL (130-400); RED BLOOD CELL COUNT(AUTO) 4.96 MIL/uL (4.50-6.20); RED CELL DISTRIBUTION WIDTH 15.5 % (11.0-15.5); WHITE BLOOD COUNT (AUTO) 7.3 K/uL (4.8-10.8)
[2024-07-28 05:58] LABS: ALBUMIN 3.4 g/dL (3.5-5.0); BILIRUBIN,TOTAL 0.6 mg/dL (0.2-1.0); CREATININE 0.8 mg/dL (0.5-1.3); POTASSIUM 3.5 mmol/L (3.5-5.1); TOTAL PROTEIN, SERUM 6.6 g/dL (6.0-8.3)
--- NOTE | 2024-07-28 07:14 | PN ---
[facility] Cardiology Progress Note CARDIOLOGY PROGRESS NOTE JULY 28, 2024 Problems: 1. Peripheral arterial disease with resting claudication of the left leg and monophasic waveforms in the left common femoral deep femoral superficial femoral popliteal posterior tibial and dorsalis pedis arteries 2. Hypertension 3. Dyslipidemia 4. Remote history of TIA 5. COPD 6. Possible hyperthyroidism 7. Tobacco dependence 8. Homeless status followed at the [facility] on [address] for primary care Blood pressure is running 120-130 systolic heart rate is in the 60s. White co unt 7.3 hemoglobin 15 platelet count [id number]. Potassium 3.5 BUN seven creatinine 0.8. 2D echocardiogram was ordered by the medical service and shows an ejection fraction of 50-55%. There was trace mitral regurgitation and trace tricuspid regurgitation. Venous Doppler showed no evidence of deep vein thrombosis. Arterial Dopplers as previously noted showed severe monophasic waveforms through most of the left lower extremity. The patient is tentatively scheduled for aortic runoff with PCI depending on Dr. Reyes's schedule. He will evaluate the patient today. REMBERTO CHIRINOS MD Jul 28, 2024 07:14
--- NOTE | 2024-07-28 10:03 | PN ---
[facility] PROGRESS NOTE Date of Service: Jul 28, 2024 Time of Service: 10:[address] Castellanos SUBJECTIVE: [ 07/26/24 Patient is 64 years old male with a past medical history of hypertension, hyperlipidemia, TIA, COPD, hypothyroidism, diabetes, left inguinal hernia, ulcerative colitis, BPH, who came to emergency department with a complaint of left lower extremity discomfort for the past 14 months. Patient stated that yesterday he went to his PCP in LTAC, located within [facility] on [address] for further evaluation of the left lower extremity discomfort. The patient was evaluated and was instructed to come to emergency department for f urther evaluation/recommendations. Left lower extremity discomfort is exacerbated with minimal pressure to his foot and slightest touch. Patient has been using a rolling walker to help with the ambulation. No visible wounds noted besides a dry scab on the bottom of the toes and between the toes. No palpable or dopplerable DP or PT pulses to the left foot and that is cool to stephanie ch. Patient is able to move his left foot but not as much as he is able to move his right. Left lower extremity Doppler reveals abnormal monophasic arterial waveforms in the left common femoral, deep femoral and superficial femoral, popliteal and posterior tibial and dorsalis pedis arteries. Chest x-ray negative. Venous Doppler negative. 2D echo pending. Patient was evaluated by the cadmium burner and at this moment they recommending angiogram with Dr. Reyes on . Most recent vital signs temperature 97.0 pulse 75 respiration 18 blood pressure 135/78, patient is satting 99% on room air. WBC 6.5 hemoglobin 14.8 hematocrit 44.3 platelets 307. UA negative. Influenza a and influenza B negative. Sodium 139 potassium 3.6 CO2 27 BUN nine creatinine 0.8 GFR 100 random glucose 104 total calcium 9.2 troponin negative x1. 07/27/24 patient was seen by nurse practitioner and physician during rounding in room 432. As per cadmium burner who evaluated patient yesterday patient continues on heparin drip and that is pending aortic runoff study with a possible percutaneous intervention by Dr. Reyes or Thursday once he will come back from vacation. 2D echo is still pending. We will continue to monitor patient in the meantime. A.m. labs. 07/28/24 patient was seen by nurse practitioner and physician during rounding in room 432. As per cadmium burner who evaluated patient yesterday patient continues on heparin drip and that is pending aortic runoff study with a possible percutaneous intervention by Dr. Reyes or Thursday once he will come back from vacation. 2D echo is still pending. We will continue to monitor patient in the meantime. A.m. labs. ] REVIEW OF SYSTEMS CONSTITUTIONAL: Denies fevers, chills, or night sweats. No unintentional weight loss reported. NEUROLOGICAL: Denies headache, amaurosis fugax, motor weakness, sensory deficit, vertigo/spinning sensation, gait abnormalities, or tremors. ENT: No hearing loss, otalgia, otorrhea, rhinitis, rhinorrhea, hoarseness, or sore throat. CARDIOVASCULAR: Denies any exertional angina, dyspnea on exertion, orthopnea, paroxysmal nocturnal dyspnea, palpitations, life-threatening arrhythmias, claudication. PULMONARY: Denies any shortness of breath, cough, phlegm/sputum, hemoptysis, pleuritic chest pain. SLEEP: Denies morning headaches, daytime somnolence or napping. Denies difficulty falling asleep, staying asleep, waking from sleep. Denies knowledge of snoring. GASTROINTESTINAL: Denies any type of dysphagia to either liquids or solids. Denies nausea, vomiting, pyrosis, early satiety, abdominal pain, diarrhea, con stipation, or changes in stool consistency or caliber. Denies coffee-ground emesis, hematemesis, hematochezia, or melanotic stools. GENITOURINARY: Denies frequency, urgency, nocturia, hematuria or incontinence (Storage/Irritative symptoms.) Low urinary stream, straining to void, urinary intermittency or hesitancy, splitting of the voiding stream, terminal dribbling. ENDOCRINOLOGIC: Denies polyuria, polydipsia, polyphagia or heat/cold intolerances. HEMATOLOGIC: Denies thrombophilia/previous clots, or coagulopathy/bleeding disorders. ONCOLOGIC: Denies personal history of malignancy. DERMATOLOGIC: Denies rashes or pruritus. Complains of skin dryness on the left foot close to the toes PSYCHIATRIC: Denies any suicidal or homicidal ideation. Denies hallucinations. PHYSICAL EXAM GENERAL APPEARANCE: The patient is awake, alert, and oriented, in no acute cardiopulmonary distress. NEUROLOGICAL: Cranial nerves II-XII grossly intact. Motor is 5/5 in bilateral upper and lower extremities proximal to distal. No sensory deficits. HEENT: Face is symmetric. Pupils are equal and reactive. Extraocular movements are intact. NECK: Supple. No JVD. No thyromegaly. No submental, submandibular, pre- /postauricular, occipital or supraclavicular lymphadenopathy. CHEST: Normal chest expansion. No Telemetry. LUNGS: Absence of any rales, rhonchi or any wheezing. CARDIOVASCULAR: Regular. S1 and S2 normal. No appreciable rubs, murmurs or gallops. ABDOMEN: Soft, nontender, and nondistended. There is no rebound, voluntary guarding, or rigidity. : Deferred. No Dumont. EXTREMITIES: Non-edematous and not cyanotic. No clubbing. Good capillary refill. SKIN: No skin breakdown. Vital Signs (last 8hr) Date Time Temp Pulse Resp B/P (MAP) Pulse Ox O2 Delivery O2 Flow Rate FiO2 07/28/24 07:55 97.9 59 17 140/82 95 Room Air 07/28/24 04:00 98.2 62 17 135/73 96 Room Air LABS: Laboratory: Test 07/28/24 05:08 07/27/24 14:50 07/27/24 08:50 07/27/24 05:43 Range/Units White Blood Count 7.3 # 4.8-10.8 K/uL Red Blood Count 4.96 4.50-6.20 MIL/uL Hemoglobin 15.4 14.0-18.0 g/dL Hematocrit 46.2 42-54 % Mean Corpuscular Volume 93.1 79-99 fL Mean Corpuscular Hemoglobin 31.0 27.0-33.0 pg Mean Corpuscular Hemoglobin Concent 33.3 32.0-36.0 g/dL Red Cell Distribution Width 15.5 11.0-15.5 % Platelet Count 288 130-400 K/uL Mean Platelet Volume 9.3 7.5-10.5 fL Immature Granulocyte % (Auto) 0.4 0-1 % Neutrophils (%) (Auto) 62.4 40.0-77.0 % Lymphocytes (%) (Auto) 24.5 21.0-51.0 % Monocytes (%) (Auto) 8.9 3.0-13.0 % Eosinophils (%) (Auto) 2.8 0.0-8.0 % Basophils (%) (Auto) 1.0 0.0-5.0 % Neutrophils # (Auto) 4.5 1.8-7.7 K/uL Lymphocytes # (Auto) 1.8 1.0-4.8 K/uL Monocytes # (Auto) 0.7 0.1-1.0 K/uL Eosinophils # (Auto) 0.20 0.00-0.70 K/uL Basophils # (Auto) 0.07 0.00-0.20 K/uL Absolute Immature Granulocyte (auto 0.03 0-1 K/uL Nucleated Red Blood Cells 0.0 0.0-0.19 % Sodium Level 141 136-145 mmol/L Potassium Level 3.5 3.5-5.1 mmol/L Chloride Level 107 101-111 mmol/L Carbon Dioxide Level 28 21-32 mmol/L Blood Urea Nitrogen 7 7-18 mg/dL Creatinine 0.8 0.5-1.3 mg/dL Glomerular Filtration Rate Calc 100 >90 mL/min Whole Blood Glucose 105 70-110 MG/DL Random Glucose 98 70-105 mg/dL Total Calcium 8.6 8.5-10.1 mg/dL Magnesium Level 2.00 1.80-2.40 mg/dL Total Bilirubin 0.6 # 0.2-1.0 mg/dL Aspartate Amino Transf (AST/SGOT) 17 10-37 U/L Alanine Aminotransferase (ALT/SGPT) 16 12-78 U/L Alkaline Phosphatase 81 50-136 U/L Total Protein 6.6 6.0-8.3 g/dL Albumin 3.4 L 3.5-5.0 g/dL Activated Partial Thromboplast Time 48.6 H 26.3-35.5 SEC Prothrombin Time 10.5 9.6-11.6 SEC Prothromb Time International Ratio 0.99 0.85-1.15 Hemoglobin A1c 5.5 4.0-6.0 % Estimated Average Glucose (eAG) 111 70-126 mg/dL Lactic Acid Level 1.1 0.8-2.5 mmol/L Direct Bilirubin 0.1 0.0-0.3 mg/dL Ammonia 33 H 11-32 umol/L Total Creatine Kinase 112 21-232 U/L Troponin I High Sensitivity 7.6 4-75 ng/L B-Type Natriuretic Peptide 12 0-100 pg/mL Procalcitonin < 0.05 L 0.05-0.5 ng/mL Test 07/26/24 17:30 Range/Units Urine Color COLORLESS YELLOW Urine Appearance CLEAR CLEAR Urine pH 6.5 5.0-8.0 Urine Specific [place] 1.005 1.001-1.031 Urine Protein NEGATIVE NEGATIVE mg/dL Urine Glucose (UA) NEGATIVE NEGATIVE mg/dL Urine Ketones NEGATIVE NEGATIVE mg/dL Urine Occult Blood NEGATIVE NEGATIVE Urine Nitrate NEGATIVE NEGATIVE Urine Bilirubin NEGATIVE NEGATIVE mg/dL Urine Urobilinogen 0.2 0.2-1.0 mg/dL Urine Leukocyte Esterase NEGATIVE NEGATIVE Wm/uL Influenza Type A Antigen Negative For Type A NEGATIVE Influenza Type B Antigen Negative For Type B NEGATIVE Current Medications Medications (Trade) Dose Ordered Sig/Mari Route PRN Reason Start Time Stop Time Status Last Admin Dose Admin Acetaminophen (TYLenol 325MG TAB) 650 mg Q4H PRN PO MILD PAIN (1-3) 07/26/24 16:30 07/26/24 16:10 DC Acetaminophen (TYLenol 325MG TAB) 650 mg Q6H PRN PO MILD PAIN (1-3) 07/26/24 16:30 08/25/24 16:29 Acetaminophen (TYLenol 325MG TAB) 650 mg Q6H PRN PO TEMPERATURE GREATER THAN 101.5 07/26/24 16:30 08/25/24 16:29 Al Hydroxide/Mg Hydroxide (MAALox PLUS 30ML) 30 ml Q6H PRN PO INDIGESTION 07/26/24 16:30 08/25/24 16:29 Aspirin (Aspirin 81mg Ec Tab) 81 mg DAILY PO 07/27/24 09:00 08/26/24 08:59 07/28/24 09:22 81 MG Atorvastatin Calcium (LIPItor 40MG) 40 mg HS PO 07/26/24 21:00 08/25/24 20:59 07/27/24 20:24 40 MG Clopidogrel Bisulfate (plaVIX 75MG) 75 mg DAILY PO 07/27/24 09:00 08/26/24 08:59 07/28/24 09:22 75 MG Dextrose (D50w) 50 ml AD PRN IV HYPOGLYCEMIA PROTOCOL 07/26/24 16:00 08/25/24 15:59 Diphenhydramine HCl (BENAdryl INJ) 25 mg Q6H PRN IV SEVERE ITCHING/RASH 07/26/24 16:30 08/25/24 16:29 Famotidine (Pepcid 20mg Vial) 20 mg BID IV 07/26/24 21:00 08/25/24 20:59 07/28/24 09:22 20 MG Famotidine (Pepcid 20mg Vial) 20 mg BID PRN IV NAUSEA/VOMITING 07/26/24 16:30 07/26/24 16:10 DC Glucagon (Glucagon 1mg Kit) 1 mg AD PRN IM HYPOGLYCEMIA PROTOCOL 07/26/24 16:00 08/25/24 15:59 Guaifenesin/ Dextromethorphan (RobiTUSSin DM 200/20MG 10ML) 10 ml Q4H PRN PO COUGH 07/26/24 16:30 08/25/24 16:29 Heparin Sodium (Porcine) (HEParin 5,000 UNIT VIAL) *calculation based on ACTUAL B... AD PRN IV HEPARIN PROTOCOL 07/26/24 20:30 08/25/24 20:29 07/26/24 20:05 5,000 UNIT Heparin Sodium (Porcine) (HEParin 5,000 UNIT VIAL) 5,000 unit BID SQ 07/26/24 21:00 07/26/24 17:20 DC Heparin Sodium/ Dextrose 250 ml @ 0 mls/hr PROTOCOL IV 07/26/24 17:30 08/25/24 17:29 07/27/24 21:29 9.47 MLS/HR Hydralazine HCl (APRESOLine 20MG INJ) 10 mg Q6H PRN IV For:SBP above 160;DBP above 90 07/26/24 16:30 08/25/24 16:29 Insulin Human Regular (humuLIN R 100 UNIT/ML 3ML) INSULIN SLIDING SCAL... ACHS SQ 07/26/24 16:30 08/25/24 16:29 Ketorolac Tromethamine (toRADol) 15 mg Q8H PRN IV MODERATE PAIN (4-6) 07/26/24 16:30 07/31/24 16:29 07/26/24 17:35 15 MG Lactulose (Constulose 20gm/ 30ml Udcup) 20 gm BID PRN PO CONSTIPATION 07/26/24 16:30 08/25/24 16:29 Magnesium Sulfate 50 ml @ 0 mls/hr PROTOCOL PRN IV other 07/26/24 16:00 08/25/24 15:59 Morphine Sulfate (morPHINE 2MG SYG) 1 mg Q4H PRN IVP SEVERE PAIN (7-10) 07/26/24 16:30 08/02/24 16:29 07/27/24 15:03 1 MG Morphine Sulfate (morPHINE 2MG SYG) 2 mg Q6H6 PRN IVP SEVERE PAIN (7-10) 07/26/24 16:00 07/26/24 16:10 DC Nitroglycerin (Nitrostat) 0.4 mg PROTOCOL PRN SL CHEST PAIN 07/26/24 16:30 08/25/24 16:29 Ondansetron HCl (zoFRAN 4MG INJ) 4 mg Q6H PRN IV NAUSEA/VOMITING 07/26/24 16:30 08/25/24 16:29 07/27/24 23:58 4 MG Ondansetron HCl (zoFRAN 4MG INJ) 4 mg Q6H PRN IVP NAUSEA/VOMITING 07/26/24 15:30 07/26/24 16:10 DC Potassium Chloride 100 ml @ 100 mls/hr AD PRN IV POTASSIUM PROTOCOL 07/26/24 16:00 08/25/24 15:59 Potassium Chloride (K-Dur/Klor-Con 20meq) 10 meq AD PRN PO POTASSIUM PROTOCOL 07/26/24 16:00 08/25/24 15:59 Potassium Chloride (KCl 10% Elixir 20meq/15ml) 10 meq AD PRN PO POTASSIUM PROTOCOL 07/26/24 16:00 08/25/24 15:59 Sodium Chloride 1,000 ml @ 100 mls/hr Q10H IV 07/27/24 07:00 08/26/24 06:59 Zolpidem Tartrate (AmbIEN) 5 mg HS PRN PO INSOMNIA 07/26/24 16:30 08/25/24 16:29 07/27/24 01:09 5 MG DIAGNOSTICS / RADIOLOGY: [ ] ASSESSMENT: [ Severe PAD with claudication POA Uncontrolled HTN Severe malnutrition Prediabetes Hyperlipidemia Left inguinal hernia ulcerative colitis BPH History of TIA COPD not exacerbation hyperthyroidism Active tobacco abuse (5-7 cigarettes per day) Homelessness ] PLAN: [Admit to: Medical-surgical floor Consults: Patternmaker Grader Antibiotics: None Tests: 2D echo Heparin drip NEURO: Minimize central acting medications as possible. Fall Precautions. Well lighted room through the day and minimize interruptions through the night to prevent acute delirium. PULMONARY: Chest x-ray negative Supplemental 02 as needed BiPAP as necessary, for respiratory distress Titrate Fio2 to keep Spo2 > or = 90% DuoNebs and CPT as needed IS hourly while awake for pulmonary hygiene Out of bed to chair as tolerated VAP Bundle Maintain aspiration precautions at all times CARDIOVASCULAR: Possible aortic runoff study with a possible percutaneous intervention pending with Dr. Reyes 07/28/2024 Arterial Doppler abnormal Venous Doppler negative 2D echo pending Follow hemodynamics. Vital signs per facility protocol GI & NUTRITION: Continue nutritional support Aspirations precautions Prokinetic agents and laxatives as needed KIDNEYS & ELECTROLYTES: Strict monitoring of intake and output Daily weights Avoid nephrotoxic agents Monitor electrolytes and replace as needed Goal urine output of 30mL/hr or 0.5mL/kg/hr Medications to be dosed according to renal function. Avoid contrast if possible ENDOCRINE: Maintain blood glucose between 100-180 at all times. Insulin sliding scale for blood glucose management Hypoglycemia and hyperglycemia protocol in place INFECTIOUS DISEASE: Trend temperature, WBC and procalcitonin level Follow cultures, deescalate antibiotics as soon as possible. Panculture if new onset fever HEMATOLOGY & COAGULATION: Monitor H&H. Keep Hgb > 7 Transfuse 1 unit of PRBC for Hgb < 7 Transfuse 1 pack of platelets of platelets < 20, 000 Watch for any signs and symptoms of bleeding SKIN: Pressure ulcer prevention per facility protocol Specialty mattress as needed Treatment plan discussed with patient and family at the bedside Medications to be reconciled once obtained by patient and/or family and available to be reconciled in computer p.r.n. medication for pain nausea and vomiting Questions were answered We will continue to monitor the patient closely Yard Foreman for disposition Rehab: PT/OT GI: PPI DVT: SCD's Code Status: Full Resuscitation Disposition: TBD Prognosis: Guarded ] ATTESTATION BY PHYSICIAN I have seen and examined the patient. I reviewed the documentation, medical decision making, and treatment plan as noted by the mid-level provider above. I agree with the findings and plan of care. BERNADETTE CASTELLANOS MD, KATARZYNA B ADULT NEUROLOGIST Jul 28, 2024 10:03
[2024-07-28] MEDS ORDERED: PoTASSium chloRIDE 10MEQ SR 10 MEQ/TAB TAB.SR.24H PO PRN (12:30)
[2024-07-28] MEDS ORDERED: LIDOCAINE HCL 400MG/20ML VIAL ONE ×2 (17:31→18:20)
[2024-07-28] MEDS ORDERED: IODIXANOL 320 MG/ML 100 ML VIAL ONE ×2 (17:31→18:39)
[2024-07-28] MEDS ORDERED: HEParin 10,000 UNIT/10ML (1,000 UNIT/ML) VIAL ONE (17:31)
--- NOTE | 2024-07-28 17:31 | NUR ---
PT held for possible procedure
[2024-07-28] MEDS ORDERED: HEParin-NS 1,000 UNIT/500 ML 1,000 ML IV ONE (17:32)
[2024-07-28] MEDS ORDERED: NITROGLYCERIN 50MG VIAL ONE (18:03)
[2024-07-28] MEDS ORDERED: MIDAZOLAM HCL 1 MG/ML 2ML VIAL ONE (18:10)
[2024-07-28] MEDS ORDERED: FENTanyl CITRate PF 50 MCG/1 ML 2ML VIAL ONE (18:10)
[2024-07-28] MEDS ORDERED: hydrALAZine 20MG/ML VIAL IV PRN (19:00)
[2024-07-28] MEDS: 0.9%NACL 1000ML 1,000 ML IV SCH (19:00)
--- NOTE | 2024-07-28 19:02 | PRN ---
Procedure Note INDICATION FOR PROCEDURE: [] Claudication left leg symptom limiting PROCEDURE: [] Conscious sedation Bilateral 6 Irish sheath placements to bilateral common femoral arteries Bilateral common femoral arteriogram with runoffs Abdominal aortogram DATE OF PROCEDURE: July 28, 2024 CLIENT TECHNICAL SUPPORT ASSOCIATE: Silvio Reyes MD, F.A.C.C. PROCEDURE NOTE: [] Patient was electively brought to catheterization suite and prepped and draped in sterile fashion. An IV was started if not already in place and both groins were exposed for arterial access. 2% lidocaine was used for local anesthesia then a micro puncture kit was used to gain access to the right common femoral artery. Modified Seldinger technique was utilized and then a 6 Irish short sheath was then placed in the right common femoral artery. Runoff was done to the right lower extremity. Findings are as described below. Next an Omni flush catheter was then placed in the aorta contrast injection was performed using digital subtraction angiography with findings as described below when patient was noted to have 100% occlusion the common iliac artery on the left with reconstitution noted at the level of the left common femoral artery at the level of the head of the femur. We then used this to gain access at the left common femoral artery with a micro puncture kit where a 6 Irish sheath was then placed into the left common femoral artery with pressure measurements revealing a greater than 100 mm gradient noted across lesion. Attempts were made to get the Glidewire into the true lumen but was unsuccessful as we appeared to be subintimal. I did do a runoff to the left lower extremity to define this anatomy. We then did further imaging through the right common femoral artery with the Omni flush catheter to make sure there was no extension of any plaque disruption within the aorta which was done with revealing normal flow within the aorta. At end of case both sheaths were pulled using manual pressure. FINDINGS: [] The abdominal aorta in its infrarenal segment has significant aneurysmal changes noted. The right common iliac and external iliac artery are noted to be patent. Right common femoral artery profunda femoris and superficial femoral artery on the right are noted to be patent. Right popliteal artery was noted to be patent. There is two-vessel runoff noted to the right foot via a patent right anterior tibial artery and posterior tibial artery. The left common iliac and external iliac artery is aneurysmal and 100% occluded with reconstitution noted at the level of the left common femoral artery. The left profunda femoris and superficial femoral artery are noted to be patent. The left popliteal artery is diffusely diseased and small and almost looks dissected with a 70-80% stenosis noted in that region with two-vessel runoff noted to the left foot via a patent left anterior tibial artery and posterior tibial artery. 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 We will discuss this further with Dr. Ortiz. If this fails consideration for femoral femoral bypass can be entertained SILVIO REYES MD Jul 28, 2024 19:01
[2024-07-29] VITALS (9 sets, daily range): BP systolic 128–162; BP diastolic 62–92; PULSE 54–89; RESP 18–20; TEMP 97.7–99; O2SAT 97
[2024-07-29 05:31] LABS: BASOPHILS # (AUTO) 0.09 K/uL (0.00-0.20); BASOPHILS % (AUTO) 1.1 % (0.0-5.0); EOSINOPHILS # (AUTO) 0.19 K/uL (0.00-0.70); EOSINOPHILS % (AUTO) 2.4 % (0.0-8.0); HEMATOCRIT 44.9 % (42-54); IMMATURE GRANULOCYTE ABSOLUTE 0.03 K/uL (0-1); LYMPHOCYTES # (AUTO) 1.5 K/uL (1.0-4.8); LYMPHOCYTES % (AUTO) 18.4 % (21.0-51.0); MEAN CORPUSCULAR HEMOGLOBIN 31.1 pg (27.0-33.0); MEAN CORPUSCULAR HGB CONC 33.4 g/dL (32.0-36.0); MONOCYTES # (AUTO) 0.8 K/uL (0.1-1.0); MONOCYTES % (AUTO) 10.2 % (3.0-13.0); NEUTROPHILS # (AUTO) 5.4 K/uL (1.8-7.7); NEUTROPHILS % (AUTO) 67.5 % (40.0-77.0); PLATELET COUNT (AUTO) 253 K/uL (130-400); RED BLOOD CELL COUNT(AUTO) 4.83 MIL/uL (4.50-6.20); RED CELL DISTRIBUTION WIDTH 15.4 % (11.0-15.5)
[2024-07-29 05:53] LABS: ALBUMIN 3.4 g/dL (3.5-5.0); BILIRUBIN,TOTAL 0.5 mg/dL (0.2-1.0); POTASSIUM 3.9 mmol/L (3.5-5.1); TOTAL PROTEIN, SERUM 6.6 g/dL (6.0-8.3)
--- NOTE | 2024-07-29 06:46 | PN ---
[facility] Cardiology Progress Note CARDIOLOGY PROGRESS NOTE July Problems: 1. Peripheral arterial disease with with total occlusion of the left common iliac and external iliac with infrarenal abdominal aortic aneurysm and aneurysmal changes in the left common iliac and left external iliac arteries with a 70% stenosis in the left popliteal artery 2. Hypertension 3. Dyslipidemia 4. Remote history of TIA 5. COPD 6. Possible hyperthyroidism 7. Tobacco dependence 8. Homeless status followed at the [facility] The patient underwent an aortic runoff yesterday and was found to have total occlusion of the left common iliac and left external iliac with aneurysm of the aorta and left common iliac and 70-80% left popliteal stenosis. Attempts to cross with a Glidewire into the true lumen were unsuccessful. The trocars is considering a radial approach to see if the true lumen could be engaged this fails the patient may require a left fem-fem bypass. This morning blood pressure is 50/90 heart rate is in the 50s the patient is afebrile. White count is 8.0 hemoglobin 15 platelet count [id number]. Potassium 3.9 BUN14 creatinine 1.0. The patient continues on aspirin atorvastatin clopidogrel heparin protocol insulin potassium protocol. I will discuss timing of this attempt with Dr. Reyes. REMBERTO CHIRINOS MD Jul 29, 2024 06:46
[2024-07-29] MEDS: LoSARTan 25 MG TABLET PO SCH (09:48)
--- NOTE | 2024-07-29 10:40 | PN ---
[facility] PROGRESS NOTE Date of Service: Jul 29, 2024 Time of Service: 10:36 SUBJECTIVE: [ 07/26/24 Patient is 64 years old male with a past medical history of hypertension, hyperlipidemia, TIA, COPD, hypothyroidism, diabetes, left inguinal hernia, ulcerative colitis, BPH, who came to emergency department with a complaint of left lower extremity discomfort for the past 14 months. Patient stated that yesterday he went to his PCP in [facility] on rounds [facility] [address] for further evaluation of the left lower extremity discomfort. The patient was evaluated and was instructed to come to emergency department for further evaluation/recommendations. Left lower extremity discomfort is exacerbated with minimal pressure to his foot and slightest touch. Patient has been using a rolling walker to help with the ambulation. No visible wounds noted besides a dry scab on the bottom of the toes and between the toes. No palpable or dopplerable DP or PT pulses to the left foot and that is cool to touch. Patient is able to move his left foot but not as much as he is able to move his right. Left lower extremity Doppler reveals abnormal monophasic arterial waveforms in the left common femoral, deep femoral and superficial femoral, popliteal and posterior tibial and dorsalis pedis arteries. Chest x- ray negative. Venous Doppler negative. 2D echo pending. Patient was evaluated by the aircraft engine mechanic overhaul and at this moment they recommending angiogram with Dr. Reyes on . Most recent vital signs temperature 97.0 pulse 75 respiration 18 blood pressure 135/78, patient is satting 99% on room air. WBC 6.5 hemoglobin 14.8 hematocrit 44.3 platelets 307. UA negative. Influenza a and influenza B negative. Sodium 139 potassium 3.6 CO2 27 BUN nine creatinine 0.8 GFR 100 random glucose 104 total calcium 9.2 troponin negative x1. 07/27/24 patient was seen by nurse practitioner and physician during rounding in room 432. As per aircraft engine mechanic overhaul who evaluated patient yesterday patient continues on heparin drip and that is pending aortic runoff study with a possible percutaneous intervention by Dr. Reyes or Thursday once he will come back from vacation. 2D echo is still pending. We will continue to monitor patient in the meantime. A.m. labs. 07/28/24 patient was seen by nurse practitioner and physician during rounding in room 432. As per aircraft engine mechanic overhaul who evaluated patient yesterday patient continues on heparin drip and that is pending aortic runoff study with a possible percutaneous intervention by Dr. Reyes or Thursday once he will come back from vacation. 2D echo is still pending. We will continue to monitor patient in the meantime. A.m. labs. 07/29 cirrhotic sedated at bedside, case discussed with the RN ricco acute events overnight, he remains hemodynamically stable, BP 130/77, rest of vital signs unremarkable, afebrile, he is saturating normal on room air, currently denies chest pain, denied shortness a breath, no nausea, no vomiting. REVIEW OF SYSTEMS CONSTITUTIONAL: Denies fevers, chills, or night sweats. No unintentional weight loss reported. NEUROLOGICAL: Denies headache, amaurosis fugax, motor weakness, sensory deficit, vertigo/spinning sensation, gait abnormalities, or tremors. ENT: No hearing loss, otalgia, otorrhea, rhinitis, rhinorrhea, hoarseness, or sore throat. CARDIOVASCULAR: Denies any exertional angina, dyspnea on exertion, orthopnea, paroxysmal nocturnal dyspnea, palpitations, life-threatening arrhythmias, claudication. PULMONARY: Denies any shortness of breath, cough, phlegm/sputum, hemoptysis, pleuritic chest pain. SLEEP: Denies morning headaches, daytime somnolence or napping. Denies difficulty falling asleep, staying asleep, waking from sleep. Denies knowledge of snoring. GASTROINTESTINAL: Denies any type of dysphagia to either liquids or solids. Denies nausea, vomiting, pyrosis, early satiety, abdominal pain, diarrhea, constipation, or changes in stool consistency or caliber. Denies coffee-ground emesis, hematemesis, hematochezia, or melanotic stools. GENITOURINARY: Denies frequency, urgency, nocturia, hematuria or incontinence (Storage/Irritative symptoms.) Low urinary stream, straining to void, urinary intermittency or hesitancy, splitting of the voiding stream, terminal dribbling. ENDOCRINOLOGIC: Denies polyuria, polydipsia, polyphagia or heat/cold intolerances. HEMATOLOGIC: Denies thrombophilia/previous clots, or coagulopathy/bleeding d isorders. ONCOLOGIC: Denies personal history of malignancy. DERMATOLOGIC: Denies rashes or pruritus. Complains of skin dryness on the left foot close to the toes PSYCHIATRIC: Denies any suicidal or homicidal ideation. Denies hallucinations. PHYSICAL EXAM GENERAL APPEARANCE: The patient is awake, alert, and oriented, in no acute cardiopulmonary distress. NEUROLOGICAL: Cranial nerves II-XII grossly intact. Motor is 5/5 in bilateral upper and lower extremities proximal to distal. No sensory deficits. HEENT: Face is symmetric. Pupils are equal and reactive. Extraocular movements are intact. NECK: Supple. No JVD. No thyromegaly. No submental, submandibular, pre- /postauricular, occipital or supraclavicular lymphadenopathy. CHEST: Normal chest expansion. No Telemetry. LUNGS: Absence of any rales, rhonchi or any wheezing. CARDIOVASCULAR: Regular. S1 and S2 normal. No appreciable rubs, murmurs or gallops. ABDOMEN: Soft, nontender, and nondistended. There is no rebound, voluntary guarding, or rigidity. : Deferred. No Dumont. EXTREMITIES: Non-edematous and not cyanotic. No clubbing. Good capillary refill. SKIN: No skin breakdown. Vital Signs (last 8hr) Date Time Temp Pulse Resp B/P (MAP) Pulse Ox O2 Delivery O2 Flow Rate FiO2 07/29/24 07:05 98.2 62 20 138/77 97 Room Air 21 LABS: Laboratory: Test 07/29/24 05:32 07/29/24 04:59 07/28/24 18:47 07/28/24 14:50 Range/Units Whole Blood Glucose 97 70-110 MG/DL White Blood Count 8.0 4.8-10.8 K/uL Red Blood Count 4.83 4.50-6.20 MIL/uL Hemoglobin 15.0 14.0-18.0 g/dL Hematocrit 44.9 42-54 % Mean Corpuscular Volume 93.0 79-99 fL Mean Corpuscular Hemoglobin 31.1 27.0-33.0 pg Mean Corpuscular Hemoglobin Concent 33.4 32.0-36.0 g/dL Red Cell Distribution Width 15.4 11.0-15.5 % Platelet Count 253 130-400 K/uL Mean Platelet Volume 9.2 7.5-10.5 fL Immature Granulocyte % (Auto) 0.4 0-1 % Neutrophils (%) (Auto) 67.5 40.0-77.0 % Lymphocytes (%) (Auto) 18.4 L 21.0-51.0 % Monocytes (%) (Auto) 10.2 3.0-13.0 % Eosinophils (%) (Auto) 2.4 0.0-8.0 % Basophils (%) (Auto) 1.1 0.0-5.0 % Neutrophils # (Auto) 5.4 1.8-7.7 K/uL Lymphocytes # (Auto) 1.5 1.0-4.8 K/uL Monocytes # (Auto) 0.8 0.1-1.0 K/uL Eosinophils # (Auto) 0.19 0.00-0.70 K/uL Basophils # (Auto) 0.09 0.00-0.20 K/uL Absolute Immature Granulocyte (auto 0.03 0-1 K/uL Nucleated Red Blood Cells 0.0 0.0-0.19 % Sodium Level 139 136-145 mmol/L Potassium Level 3.9 3.5-5.1 mmol/L Chloride Level 104 101-111 mmol/L Carbon Dioxide Level 27 21-32 mmol/L Blood Urea Nitrogen 14 7-18 mg/dL Creatinine 1.0 0.5-1.3 mg/dL Glomerular Filtration Rate Calc 85 >90 mL/min Random Glucose 98 70-105 mg/dL Total Calcium 8.7 8.5-10.1 mg/dL Magnesium Level 2.00 1.80-2.40 mg/dL Total Bilirubin 0.5 0.2-1.0 mg/dL Aspartate Amino Transf (AST/SGOT) 17 10-37 U/L Alanine Aminotransferase (ALT/SGPT) 15 12-78 U/L Alkaline Phosphatase 87 50-136 U/L Total Protein 6.6 6.0-8.3 g/dL Albumin 3.4 L 3.5-5.0 g/dL Activated Clotting Time 225 H 100-180 SEC Activated Partial Thromboplast Time 27.7 # 26.3-35.5 SEC Current Medications Medications (Trade) Dose Ordered Sig/Mari Route PRN Reason Start Time Stop Time Status Last Admin Dose Admin Acetaminophen (TYLenol 325MG TAB) 650 mg Q4H PRN PO MILD PAIN (1-3) 07/26/24 16:30 07/26/24 16:10 DC Acetaminophen (TYLenol 325MG TAB) 650 mg Q6H PRN PO MILD PAIN (1-3) 07/26/24 16:30 08/25/24 16:29 Acetaminophen (TYLenol 325MG TAB) 650 mg Q6H PRN PO TEMPERATURE GREATER THAN 101.5 07/26/24 16:30 08/25/24 16:29 Al Hydroxide/Mg Hydroxide (MAALox PLUS 30ML) 30 ml Q6H PRN PO INDIGESTION 07/26/24 16:30 08/25/24 16:29 Aspirin (Aspirin 81mg Ec Tab) 81 mg DAILY PO 07/27/24 09:00 08/26/24 08:59 07/29/24 09:48 81 MG Atorvastatin Calcium (LIPItor 40MG) 40 mg HS PO 07/26/24 21:00 08/25/24 20:59 07/28/24 21:21 40 MG Clopidogrel Bisulfate (plaVIX 75MG) 75 mg DAILY PO 07/27/24 09:00 08/26/24 08:59 07/29/24 09:48 75 MG Dextrose (D50w) 50 ml AD PRN IV HYPOGLYCEMIA PROTOCOL 07/26/24 16:00 08/25/24 15:59 Diphenhydramine HCl (BENAdryl INJ) 25 mg Q6H PRN IV SEVERE ITCHING/RASH 07/26/24 16:30 08/25/24 16:29 Famotidine (Pepcid 20mg Vial) 20 mg BID IV 07/26/24 21:00 08/25/24 20:59 07/29/24 09:48 20 MG Famotidine (Pepcid 20mg Vial) 20 mg BID PRN IV NAUSEA/VOMITING 07/26/24 16:30 07/26/24 16:10 DC Glucagon (Glucagon 1mg Kit) 1 mg AD PRN IM HYPOGLYCEMIA PROTOCOL 07/26/24 16:00 08/25/24 15:59 Guaifenesin/ Dextromethorphan (RobiTUSSin DM 200/20MG 10ML) 10 ml Q4H PRN PO COUGH 07/26/24 16:30 08/25/24 16:29 Heparin Sodium (Porcine) (HEParin 5,000 UNIT VIAL) *calculation based on ACTUAL B... AD PRN IV HEPARIN PROTOCOL 07/26/24 20:30 08/25/24 20:29 07/26/24 20:05 5,000 UNIT Heparin Sodium (Porcine) (HEParin 5,000 UNIT VIAL) 5,000 unit BID SQ 07/26/24 21:00 07/26/24 17:20 DC Heparin Sodium/ Dextrose 250 ml @ 0 mls/hr PROTOCOL IV 07/26/24 17:30 08/25/24 17:29 07/27/24 21:29 9.47 MLS/HR Hydralazine HCl (APRESOLine 20MG INJ) 10 mg Q20M PRN IV SBP ABOVE 160MMHG 07/28/24 19:00 08/27/24 18:59 Hydralazine HCl (APRESOLine 20MG INJ) 10 mg Q6H PRN IV For:SBP above 160;DBP above 90 07/26/24 16:30 07/28/24 19:00 DC Insulin Human Regular (humuLIN R 100 UNIT/ML 3ML) INSULIN SLIDING SCAL... ACHS SQ 07/26/24 16:30 08/25/24 16:29 Ketorolac Tromethamine (toRADol) 15 mg Q8H PRN IV MODERATE PAIN (4-6) 07/26/24 16:30 07/31/24 16:29 07/29/24 05:38 15 MG Lactulose (Constulose 20gm/ 30ml Udcup) 20 gm BID PRN PO CONSTIPATION 07/26/24 16:30 08/25/24 16:29 Losartan Potassium (CozAAR 25MG TAB) 25 mg DAILY PO 07/29/24 09:00 08/28/24 08:59 07/29/24 09:48 25 MG Magnesium Sulfate 50 ml @ 0 mls/hr PROTOCOL PRN IV other 07/26/24 16:00 08/25/24 15:59 Morphine Sulfate (morPHINE 2MG SYG) 1 mg Q4H PRN IVP SEVERE PAIN (7-10) 07/26/24 16:30 08/02/24 16:29 07/29/24 01:21 1 MG Morphine Sulfate (morPHINE 2MG SYG) 2 mg Q6H6 PRN IVP SEVERE PAIN (7-10) 07/26/24 16:00 07/26/24 16:10 DC Nitroglycerin (Nitrostat) 0.4 mg PROTOCOL PRN SL CHEST PAIN 07/26/24 16:30 08/25/24 16:29 Ondansetron HCl (zoFRAN 4MG INJ) 4 mg Q6H PRN IV NAUSEA/VOMITING 07/26/24 16:30 08/25/24 16:29 07/27/24 23:58 4 MG Ondansetron HCl (zoFRAN 4MG INJ) 4 mg Q6H PRN IVP NAUSEA/VOMITING 07/26/24 15:30 07/26/24 16:10 DC Potassium Chloride 100 ml @ 100 mls/hr AD PRN IV POTASSIUM PROTOCOL 07/26/24 16:00 08/25/24 15:59 Potassium Chloride (K-Dur 10meq Sr Tab) 10 meq AD PRN PO POTASSIUM PROTOCOL 07/28/24 12:30 08/25/24 15:59 Potassium Chloride (K-Dur/Klor-Con 20meq) 10 meq AD PRN PO POTASSIUM PROTOCOL 07/26/24 16:00 07/28/24 12:02 DC Potassium Chloride (KCl 10% Elixir 20meq/15ml) 10 meq AD PRN PO POTASSIUM PROTOCOL 07/26/24 16:00 08/25/24 15:59 Sodium Chloride 1,000 ml @ 100 mls/hr Q10H IV 07/28/24 19:00 07/28/24 22:59 DC Sodium Chloride 1,000 ml @ 100 mls/hr Q10H IV 07/27/24 07:00 07/28/24 18:58 DC 07/28/24 13:22 100 MLS/HR Zolpidem Tartrate (AmbIEN) 5 mg HS PRN PO INSOMNIA 07/26/24 16:30 08/25/24 16:29 07/27/24 01:09 5 MG DIAGNOSTICS / RADIOLOGY: [ ] ASSESSMENT: Severe PAD with claudication POA 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 Cardiology input noted and appreciated, plan for further revascularization. NEURO: Minimize central acting medications as possible. Fall Precautions. Well lighted room through the day and minimize interruptions through the night to prevent acute delirium. PULMONARY: Supplemental 02 as needed BiPAP as necessary, for respiratory distress Titrate Fio2 to keep Spo2 > or = 90% DuoNebs and CPT as needed IS hourly while awake for pulmonary hygiene prn Out of bed to chair as tolerated Maintain aspiration precautions at all times CARDIOVASCULAR: Follow hemodynamics. Vital signs per facility protocol GI & NUTRITION: Continue nutritional support Aspirations precautions Prokinetic agents and laxatives as needed KIDNEYS & ELECTROLYTES: Strict monitoring of intake and output Daily weights Avoid nephrotoxic agents Monitor electrolytes and replace as needed Goal urine output of 30mL/hr or 0.5mL/kg/hr Medications to be dosed according to renal function. Avoid contrast if possible ENDOCRINE: Maintain blood glucose between 100-180 at all times. Insulin sliding scale for blood glucose management Hypoglycemia and hyperglycemia protocol in place INFECTIOUS DISEASE: Trend temperature, WBC and procalcitonin level Follow cultures, deescalate antibiotics as soon as possible. Panculture if new onset fever HEMATOLOGY & COAGULATION: Monitor H&H. Keep Hgb > 7 Transfuse 1 unit of PRBC for Hgb < 7 Transfuse 1 pack of platelets of platelets < 20, 000 Watch for any signs and symptoms of bleeding SKIN: Pressure ulcer prevention per facility protocol Specialty mattress as needed ORTHO/REHAB Continue PT/OT PRN: MEDICATIONS Tylenol 650 mg po every 4 hrs for fever zofran 4 mg IV every 6 hrs for n/v Hydralazine 5 mg IV every 4 hrs systolic pressure > 160 bowel regiment: lactulose 20 gm PO BID PRN constipation Supportive measures: Continue GI and DVT prophylaxis Disposition: Pending improvement in clinical condition All questions answered time spent: > 35 min BERNADETTE GAXIOLA MD Jul 29, 2024 10:40
--- NOTE | 2024-07-29 13:30 | NUR ---
Patient is s/p declotting of LLE which was unsuccessful as per nurse. Spoke to patient who stated he is walking with his Rollator no problems. States he does not need PT. Patient was observed walking from the bathroom with L leg flexed on the walker. Patient was able to negotiate walker without difficulty. DC from PT as patient appears to be mobilizing with AD without difficulty. Addendum: 07/29/24 at 1621 by AMANDA ESTEBAN PT Amended: Links added.
[2024-07-30] VITALS: BP 112/86; PULSE 76; RESP 22; TEMP 98.3
[2024-07-30 03:47] LABS: BASOPHILS # (AUTO) 0.08 K/uL (0.00-0.20); BASOPHILS % (AUTO) 1.1 % (0.0-5.0); EOSINOPHILS # (AUTO) 0.16 K/uL (0.00-0.70); EOSINOPHILS % (AUTO) 2.1 % (0.0-8.0); HEMATOCRIT 43.2 % (42-54); IMMATURE GRANULOCYTE ABSOLUTE 0.03 K/uL (0-1); LYMPHOCYTES # (AUTO) 1.3 K/uL (1.0-4.8); LYMPHOCYTES % (AUTO) 17.8 % (21.0-51.0); MEAN CORPUSCULAR HGB CONC 33.6 g/dL (32.0-36.0); MEAN CORPUSCULAR VOLUME 92.3 fL (79-99); MONOCYTES # (AUTO) 0.7 K/uL (0.1-1.0); MONOCYTES % (AUTO) 9.5 % (3.0-13.0); NEUTROPHILS # (AUTO) 5.2 K/uL (1.8-7.7); NEUTROPHILS % (AUTO) 69.1 % (40.0-77.0); PLATELET COUNT (AUTO) 264 K/uL (130-400); RED BLOOD CELL COUNT(AUTO) 4.68 MIL/uL (4.50-6.20); RED CELL DISTRIBUTION WIDTH 15.3 % (11.0-15.5); WHITE BLOOD COUNT (AUTO) 7.5 K/uL (4.8-10.8)
[2024-07-30 04:00] VITALS: BP 113/73; PULSE 56; RESP 18; TEMP 97.7
[2024-07-30 07:10] VITALS: BP 122/68; PULSE 64; RESP 20; TEMP 97.9
[2024-07-30 08:00] VITALS: O2SAT 97
--- NOTE | 2024-07-30 08:58 | PN ---
[facility] CARDIOLOGY PROGRESS NOTE Date Patient Seen: Jul 30, 2024 Time of Visit: 08:45 Interval History: This is a 64-year-old white male with a past medical history of hypertension, hyperlipidemia, TIA, COPD, continued tobacco use (5-7 cigarettes per day), left inguinal hernia, and homelessness who was sent to the ED by his primary care physician from at the [facility] for further evaluation of his severe left lower extremity discomfort. He has at least a 14 month history of left lower extremity discomfort exacerbated with minimal pressure to his left foot and with the slightest of touch. He has been using a rolling walker to assist with mobilization. He underwent a left lower extremity arterial Doppler study on 07/27/2023 dem onstrating monophasic waveforms throughout the left lower extremity. On 07/28/2024, he underwent a peripheral angiogram by Dr. Silvio Reyes and was noted to have 100% occlusion of the left common iliac and external iliac artery with aneurysmal changes noted in the left common iliac and external iliac artery and there was reconstitution at the level of the left common femoral artery. The left profunda femoris and superficial femoral artery are noted to be patent. The left popliteal artery is diffusely diseased and small and almost looks dissected with a 70-80% stenosis noted in that region with two-vessel runoff noted to the left foot via a patent left anterior tibial artery and posterior tibial artery. Proceeding with reassessment via right radial approach has been discussed and further recommendations pending from Dr. Reyes which will likely be deferred to early next week. He offers no complaints of chest pain or shortness of breath. He continues to complain of intermittent left foot pain but the left foot is warm and there are no rest ischemic changes. There is no palpable pulse to the left foot. Physical Examination: GENERAL: No acute distress. HEAD: Normal with no signs of head trauma. EYES: PERRLA, EOMI, conjunctiva and sclera normal. NECK: Supple without JVD. There is no tenderness, lymphadenopathy, or masses. No thyromegaly. Normal carotid upstrokes without bruits. LUNGS: Clear breath sounds bilaterally. No wheezes, or rhonchi. HEART: Normal rate and rhythm. Normal S1 and S2 without murmurs, gallop or rub. VASC: Peripheral pulses +2 to the right lower extremity and the left foot has no palpable pulses. The left foot has no rest ischemic changes. EXT: No clubbing, cyanosis or edema. Bilateral groin dressing removed, there is bruising to the right groin but no hematoma. Left groin puncture site is also without hematoma. There is a left inguinal hernia noted NEURO: Awake, alert, and oriented x3. No focal neurological deficits noted. Laboratory: Hematology Labs: Test 07/30/24 03:02 Range/Units White Blood Count 7.5 4.8-10.8 K/uL Red Blood Count 4.68 4.50-6.20 MIL/uL Hemoglobin 14.5 14.0-18.0 g/dL Hematocrit 43.2 42-54 % Mean Corpuscular Volume 92.3 79-99 fL Mean Corpuscular Hemoglobin 31.0 27.0-33.0 pg Mean Corpuscular Hemoglobin Concent 33.6 32.0-36.0 g/dL Red Cell Distribution Width 15.3 11.0-15.5 % Platelet Count 264 130-400 K/uL Mean Platelet Volume 9.5 7.5-10.5 fL Immature Granulocyte % (Auto) 0.4 0-1 % Neutrophils (%) (Auto) 69.1 40.0-77.0 % Lymphocytes (%) (Auto) 17.8 L 21.0-51.0 % Monocytes (%) (Auto) 9.5 3.0-13.0 % Eosinophils (%) (Auto) 2.1 0.0-8.0 % Basophils (%) (Auto) 1.1 0.0-5.0 % Neutrophils # (Auto) 5.2 1.8-7.7 K/uL Lymphocytes # (Auto) 1.3 1.0-4.8 K/uL Monocytes # (Auto) 0.7 0.1-1.0 K/uL Eosinophils # (Auto) 0.16 0.00-0.70 K/uL Basophils # (Auto) 0.08 0.00-0.20 K/uL Absolute Immature Granulocyte (auto 0.03 0-1 K/uL Nucleated Red Blood Cells 0.0 0.0-0.19 % Chemistry Labs: Test 07/30/24 05:10 07/29/24 04:59 Range/Units Whole Blood Glucose 104 70-110 MG/DL Sodium Level 139 136-145 mmol/L Potassium Level 3.9 3.5-5.1 mmol/L Chloride Level 104 101-111 mmol/L Carbon Dioxide Level 27 21-32 mmol/L Blood Urea Nitrogen 14 7-18 mg/dL Creatinine 1.0 0.5-1.3 mg/dL Glomerular Filtration Rate Calc 85 >90 mL/min Random Glucose 98 70-105 mg/dL Total Calcium 8.7 8.5-10.1 mg/dL Magnesium Level 2.00 1.80-2.40 mg/dL Total Bilirubin 0.5 0.2-1.0 mg/dL Aspartate Amino Transf (AST/SGOT) 17 10-37 U/L Alanine Aminotransferase (ALT/SGPT) 15 12-78 U/L Alkaline Phosphatase 87 50-136 U/L Total Protein 6.6 6.0-8.3 g/dL Albumin 3.4 L 3.5-5.0 g/dL Coagulation Labs: Test 07/28/24 18:47 07/28/24 14:50 Range/Units Activated Clotting Time 225 H 100-180 SEC Activated Partial Thromboplast Time 27.7 # 26.3-35.5 SEC Diagnostics / Radiology: 2D echocardiogram 07/28/2023: Conclusion The left ventricle is normal size. There is normal left ventricular wall thickness. GLS 21.0%. There is normal LV segmental wall motion. LVEF is 50-55%. The left ventricular diastolic function is normal. The aortic valve is normal in structure. There is trace mitral valve regurgitation noted. There is trace of tricuspid valve regurgitation noted. Normal RVSP estimate. There is no pericardial effusion. Impression and Plan: Peripheral artery disease with 100% occlusion of the left common iliac and external iliac artery with aneurysmal changes noted in the left common iliac and external iliac artery with reconstitution at the level of the left common femoral artery Left popliteal artery diffusely diseased and small with the appearance of dissection with a 70-80% stenosis noted in the region of the left popliteal artery with two-vessel runoff noted to the left foot via patent left anterior tibial and posterior tibial artery noted on peripheral angiogram 07/28/2024: -continue dual antiplatelet therapy and statin therapy -Dr. Reyes to follow-up on Thursday regarding proceeding with possible radial approach to repeat peripheral angiogram Hypertension: -currently blood pressure stable on losartan 25 mg p.o. daily Hyperlipidemia: -continue current atorvastatin 40 mg p.o. daily -obtain a lipid panel in a.m. Possible hyperthyroidism: -this has been previously documented in the record and we will obtain TSH and free T4 for further assessment Comorbidities: COPD and continued tobacco use Remote history of TIA Homelessness Left inguinal hernia SHANDRA ARNOLD [facility] Jul 30, 2024 08:58
[2024-07-30 11:42] VITALS: BP 132/92; PULSE 90; RESP 20; TEMP 98
--- NOTE | 2024-07-30 14:24 | PN ---
[facility] PROGRESS NOTE Date of Service: Jul 30, 2024 Time of Service: 14:23 SUBJECTIVE: [ 07/26/24 Patient is 64 years old male with a past medical history of hypertension, hyperlipidemia, TIA, COPD, hypothyroidism, diabetes, left inguinal hernia, ulcerative colitis, BPH, who came to emergency department with a complaint of left lower extremity discomfort for the past 14 months. Patient stated that yesterday he went to his PCP in [facility] on rounds [facility] [address] for further evaluation of the left lower extremity discomfort. The patient was evaluated and was instructed to come to emergency department for further evaluation/recommendations. Left lower extremity discomfort is exacerbated with minimal pressure to his foot and slightest touch. Patient has been using a rolling walker to help with the ambulation. No visible wounds noted besides a dry scab on the bottom of the toes and between the toes. No palpable or dopplerable DP or PT pulses to the left foot and that is cool to touch. Patient is able to move his left foot but not as much as he is able to move his right. Left lower extremity Doppler reveals abnormal monophasic arterial waveforms in the left common femoral, deep femoral and superficial femoral, popliteal and posterior tibial and dorsalis pedis arteries. Chest x- ray negative. Venous Doppler negative. 2D echo pending. Patient was evaluated by the cnc set up operator and at this moment they recommending angiogram with Dr. Reyes on . Most recent vital signs temperature 97.0 pulse 75 respiration 18 blood pressure 135/78, patient is satting 99% on room air. WBC 6.5 hemoglobin 14.8 hematocrit 44.3 platelets 307. UA negative. Influenza a and influenza B negative. Sodium 139 potassium 3.6 CO2 27 BUN nine creatinine 0.8 GFR 100 random glucose 104 total calcium 9.2 troponin negative x1. 07/27/24 patient was seen by nurse practitioner and physician during rounding in room 432. As per cnc set up operator who evaluated patient yesterday patient continues on heparin drip and that is pending aortic runoff study with a possible percutaneous intervention by Dr. Reyes or Thursday once he will come back from vacation. 2D echo is still pending. We will continue to monitor patient in the meantime. A.m. labs. 07/28/24 patient was seen by nurse practitioner and physician during rounding in room 432. As per cnc set up operator who evaluated patient yesterday patient continues on heparin drip and that is pending aortic runoff study with a possible percutaneous intervention by Dr. Reyes or Thursday once he will come back from vacation. 2D echo is still pending. We will continue to monitor patient in the meantime. A.m. labs. 07/29 patient seen and examined at bedside, case discussed with the RN ricco acute events overnight, he remains hemodynamically stable, BP 130/77, rest of vital signs unremarkable, afebrile, he is saturating normal on room air, currently denies chest pain, denied shortness a breath, no nausea, no vomiting. 07/30 patient seen and examined at bedside, case discussed with the RN ricco acute events overnight, he remains hemodynamically stable afebrile, he is saturating normal on room air, currently denies chest pain, denied shortness a breath, no nausea, no vomiting. Patient already evaluated by Cardiovascular physician. REVIEW OF SYSTEMS CONSTITUTIONAL: Denies fevers, chills, or night sweats. No unintentional weight loss reported. NEUROLOGICAL: Denies headache, amaurosis fugax, motor weakness, sensory deficit , vertigo/spinning sensation, gait abnormalities, or tremors. ENT: No hearing loss, otalgia, otorrhea, rhinitis, rhinorrhea, hoarseness, or sore throat. CARDIOVASCULAR: Denies any exertional angina, dyspnea on exertion, orthopnea, paroxysmal nocturnal dyspnea, palpitations, life-threatening arrhythmias, claudication. PULMONARY: Denies any shortness of breath, cough, phlegm/sputum, hemoptysis, pleuritic chest pain. SLEEP: Denies morning headaches, daytime somnolence or napping. Denies difficulty falling asleep, staying asleep, waking from sleep. Denies knowledge of snoring. GASTROINTESTINAL: Denies any type of dysphagia to either liquids or solids. Denies nausea, vomiting, pyrosis, early satiety, abdominal pain, diarrhea, constipation, or changes in stool consistency or caliber. Denies coffee-ground emesis, hematemesis, hematochezia, or melanotic stools. GENITOURINARY: Denies frequency, urgency, nocturia, hematuria or incontinence (Storage/Irritative symptoms.) Low urinary stream, straining to void, urinary intermittency or hesitancy, splitting of the voiding stream, terminal dribbling. ENDOCRINOLOGIC: Denies polyuria, polydipsia, polyphagia or heat/cold intolerances. HEMATOLOGIC: Denies thrombophilia/previous clots, or coagulopathy/bleeding disorders. ONCOLOGIC: Denies personal history of malignancy. DERMATOLOGIC: Denies rashes or pruritus. Complains of skin dryness on the left foot close to the toes PSYCHIATRIC: Denies any suicidal or homicidal ideation. Denies hallucinations. PHYSICAL EXAM GENERAL APPEARANCE: The patient is awake, alert, and oriented, in no acute cardiopulmonary distress. NEUROLOGICAL: Cranial nerves II-XII grossly intact. Motor is 5/5 in bilateral upper and lower extremities proximal to distal. No sensory deficits. HEENT: Face is symmetric. Pupils are equal and reactive. Extraocular movements are intact. NECK: Supple. No JVD. No thyromegaly. No submental, submandibular, pre-/postauricular, occipital or supraclavicular lymphadenopathy. CHEST: Normal chest expansion. No Telemetry. LUNGS: Absence of any rales, rhonchi or any wheezing. CARDIOVASCULAR: Regular. S1 and S2 normal. No appreciable rubs, murmurs or gallops. ABDOMEN: Soft, nontender, and nondistended. There is no rebound, voluntary guarding, or rigidity. : Deferred. No Dumont. EXTREMITIES: Non-edematous and not cyanotic. No clubbing. Good capillary refill. SKIN: No skin breakdown. Vital Signs (last 8hr) Date Time Temp Pulse Resp B/P (MAP) Pulse Ox O2 Delivery O2 Flow Rate FiO2 07/30/24 11:42 98.1 90 20 132/92 97 Room Air 21 07/30/24 08:00 97 Room Air* 0 21 07/30/24 07:10 97.9 64 20 122/68 99 Room Air 21 LABS: Laboratory: Test 07/30/24 10:58 07/30/24 03:02 07/29/24 04:59 07/28/24 18:47 Range/Units Whole Blood Glucose 110 70-110 MG/DL White Blood Count 7.5 4.8-10.8 K/uL Red Blood Count 4.68 4.50-6.20 MIL/uL Hemoglobin 14.5 14.0-18.0 g/dL Hematocrit 43.2 42-54 % Mean Corpuscular Volume 92.3 79-99 fL Mean Corpuscular Hemoglobin 31.0 27.0-33.0 pg Mean Corpuscular Hemoglobin Concent 33.6 32.0-36.0 g/dL Red Cell Distribution Width 15.3 11.0-15.5 % Platelet Count 264 130-400 K/uL Mean Platelet Volume 9.5 7.5-10.5 fL Immature Granulocyte % (Auto) 0.4 0-1 % Neutrophils (%) (Auto) 69.1 40.0-77.0 % Lymphocytes (%) (Auto) 17.8 L 21.0-51.0 % Monocytes (%) (Auto) 9.5 3.0-13.0 % Eosinophils (%) (Auto) 2.1 0.0-8.0 % Basophils (%) (Auto) 1.1 0.0-5.0 % Neutrophils # (Auto) 5.2 1.8-7.7 K/uL Lymphocytes # (Auto) 1.3 1.0-4.8 K/uL Monocytes # (Auto) 0.7 0.1-1.0 K/uL Eosinophils # (Auto) 0.16 0.00-0.70 K/uL Basophils # (Auto) 0.08 0.00-0.20 K/uL Absolute Immature Granulocyte (auto 0.03 0-1 K/uL Nucleated Red Blood Cells 0.0 0.0-0.19 % Sodium Level 139 136-145 mmol/L Potassium Level 3.9 3.5-5.1 mmol/L Chloride Level 104 101-111 mmol/L Carbon Dioxide Level 27 21-32 mmol/L Blood Urea Nitrogen 14 7-18 mg/dL Creatinine 1.0 0.5-1.3 mg/dL Glomerular Filtration Rate Calc 85 >90 mL/min Random Glucose 98 70-105 mg/dL Total Calcium 8.7 8.5-10.1 mg/dL Magnesium Level 2.00 1.80-2.40 mg/dL Total Bilirubin 0.5 0.2-1.0 mg/dL Aspartate Amino Transf (AST/SGOT) 17 10-37 U/L Alanine Aminotransferase (ALT/SGPT) 15 12-78 U/L Alkaline Phosphatase 87 50-136 U/L Total Protein 6.6 6.0-8.3 g/dL Albumin 3.4 L 3.5-5.0 g/dL Activated Clotting Time 225 H 100-180 SEC Test 07/28/24 14:50 Range/Units Activated Partial Thromboplast Time 27.7 # 26.3-35.5 SEC Current Medications Medications (Trade) Dose Ordered Sig/Mari Route PRN Reason Start Time Stop Time Status Last Admin Dose Admin Acetaminophen (TYLenol 325MG TAB) 650 mg Q4H PRN PO MILD PAIN (1-3) 07/26/24 16:30 07/26/24 16:10 DC Acetaminophen (TYLenol 325MG TAB) 650 mg Q6H PRN PO MILD PAIN (1-3) 07/26/24 16:30 08/25/24 16:29 Acetaminophen (TYLenol 325MG TAB) 650 mg Q6H PRN PO TEMPERATURE GREATER THAN 101.5 07/26/24 16:30 08/25/24 16:29 Al Hydroxide/Mg Hydroxide (MAALox PLUS 30ML) 30 ml Q6H PRN PO INDIGESTION 07/26/24 16:30 08/25/24 16:29 Aspirin (Aspirin 81mg Ec Tab) 81 mg DAILY PO 07/27/24 09:00 08/26/24 08:59 07/30/24 09:06 81 MG Atorvastatin Calcium (LIPItor 40MG) 40 mg HS PO 07/26/24 21:00 08/25/24 20:59 07/29/24 20:35 40 MG Clopidogrel Bisulfate (plaVIX 75MG) 75 mg DAILY PO 07/27/24 09:00 08/26/24 08:59 07/30/24 09:07 75 MG Dextrose (D50w) 50 ml AD PRN IV HYPOGLYCEMIA PROTOCOL 07/26/24 16:00 08/25/24 15:59 Diphenhydramine HCl (BENAdryl INJ) 25 mg Q6H PRN IV SEVERE ITCHING/RASH 07/26/24 16:30 08/25/24 16:29 Famotidine (Pepcid 20mg Vial) 20 mg BID IV 07/26/24 21:00 08/25/24 20:59 07/30/24 09:07 20 MG Famotidine (Pepcid 20mg Vial) 20 mg BID PRN IV NAUSEA/VOMITING 07/26/24 16:30 07/26/24 16:10 DC Glucagon (Glucagon 1mg Kit) 1 mg AD PRN IM HYPOGLYCEMIA PROTOCOL 07/26/24 16:00 08/25/24 15:59 Guaifenesin/ Dextromethorphan (RobiTUSSin DM 200/20MG 10ML) 10 ml Q4H PRN PO COUGH 07/26/24 16:30 08/25/24 16:29 Heparin Sodium (Porcine) (HEParin 5,000 UNIT VIAL) *calculation based on ACTUAL B... AD PRN IV HEPARIN PROTOCOL 07/26/24 20:30 08/25/24 20:29 07/26/24 20:05 5,000 UNIT Heparin Sodium (Porcine) (HEParin 5,000 UNIT VIAL) 5,000 unit BID SQ 07/26/24 21:00 07/26/24 17:20 DC Heparin Sodium/ Dextrose 250 ml @ 0 mls/hr PROTOCOL IV 07/26/24 17:30 08/25/24 17:29 07/27/24 21:29 9.47 MLS/HR Hydralazine HCl (APRESOLine 20MG INJ) 10 mg Q20M PRN IV SBP ABOVE 160MMHG 07/28/24 19:00 08/27/24 18:59 Hydralazine HCl (APRESOLine 20MG INJ) 10 mg Q6H PRN IV For:SBP above 160;DBP above 90 07/26/24 16:30 07/28/24 19:00 DC Insulin Human Regular (humuLIN R 100 UNIT/ML 3ML) INSULIN SLIDING SCAL... ACHS SQ 07/26/24 16:30 08/25/24 16:29 Ketorolac Tromethamine (toRADol) 15 mg Q8H PRN IV MODERATE PAIN (4-6) 07/26/24 16:30 07/31/24 16:29 07/29/24 20:36 15 MG Lactulose (Constulose 20gm/ 30ml Udcup) 20 gm BID PRN PO CONSTIPATION 07/26/24 16:30 08/25/24 16:29 Losartan Potassium (CozAAR 25MG TAB) 25 mg DAILY PO 07/29/24 09:00 08/28/24 08:59 07/30/24 09:07 25 MG Magnesium Sulfate 50 ml @ 0 mls/hr PROTOCOL PRN IV other 07/26/24 16:00 08/25/24 15:59 Morphine Sulfate (morPHINE 2MG SYG) 1 mg Q4H PRN IVP SEVERE PAIN (7-10) 07/26/24 16:30 08/02/24 16:29 07/30/24 09:13 1 MG Morphine Sulfate (morPHINE 2MG SYG) 2 mg Q6H6 PRN IVP SEVERE PAIN (7-10) 07/26/24 16:00 07/26/24 16:10 DC Nitroglycerin (Nitrostat) 0.4 mg PROTOCOL PRN SL CHEST PAIN 07/26/24 16:30 08/25/24 16:29 Ondansetron HCl (zoFRAN 4MG INJ) 4 mg Q6H PRN IV NAUSEA/VOMITING 07/26/24 16:30 08/25/24 16:29 07/27/24 23:58 4 MG Ondansetron HCl (zoFRAN 4MG INJ) 4 mg Q6H PRN IVP NAUSEA/VOMITING 07/26/24 15:30 07/26/24 16:10 DC Potassium Chloride 100 ml @ 100 mls/hr AD PRN IV POTASSIUM PROTOCOL 07/26/24 16:00 08/25/24 15:59 Potassium Chloride (K-Dur 10meq Sr Tab) 10 meq AD PRN PO POTASSIUM PROTOCOL 07/28/24 12:30 08/25/24 15:59 Potassium Chloride (K-Dur/Klor-Con 20meq) 10 meq AD PRN PO POTASSIUM PROTOCOL 07/26/24 16:00 07/28/24 12:02 DC Potassium Chloride (KCl 10% Elixir 20meq/15ml) 10 meq AD PRN PO POTASSIUM PROTOCOL 07/26/24 16:00 08/25/24 15:59 Sodium Chloride 1,000 ml @ 100 mls/hr Q10H IV 07/28/24 19:00 07/28/24 22:59 DC Sodium Chloride 1,000 ml @ 100 mls/hr Q10H IV 07/27/24 07:00 07/28/24 18:58 DC 07/28/24 13:22 100 MLS/HR Zolpidem Tartrate (AmbIEN) 5 mg HS PRN PO INSOMNIA 07/26/24 16:30 08/25/24 16:29 07/27/24 01:09 5 MG DIAGNOSTICS / RADIOLOGY: [ ] ASSESSMENT: Severe PAD with claudication POA 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 Cardiology input noted and appreciated, plan for further revascularization. NEURO: Minimize central acting medications as possible. Fall Precautions. Well lighted room through the day and minimize interruptions through the night to prevent acute delirium. PULMONARY: Supplemental 02 as needed BiPAP as necessary, for respiratory distress Titrate Fio2 to keep Spo2 > or = 90% DuoNebs and CPT as needed IS hourly while awake for pulmonary hygiene prn Out of bed to chair as tolerated Maintain aspiration precautions at all times CARDIOVASCULAR: Follow hemodynamics. Vital signs per facility protocol GI & NUTRITION: Continue nutritional support Aspirations precautions Prokinetic agents and laxatives as needed KIDNEYS & ELECTROLYTES: Strict monitoring of intake and output Daily weights Avoid nephrotoxic agents Monitor electrolytes and replace as needed Goal urine output of 30mL/hr or 0.5mL/kg/hr Medications to be dosed according to renal function. Avoid contrast if possible ENDOCRINE: Maintain blood glucose between 100-180 at all times. Insulin sliding scale for blood glucose management Hypoglycemia and hyperglycemia protocol in place INFECTIOUS DISEASE: Trend temperature, WBC and procalcitonin level Follow cultures, deescalate antibiotics as soon as possible. Panculture if new onset fever HEMATOLOGY & COAGULATION: Monitor H&H. Keep Hgb > 7 Transfuse 1 unit of PRBC for Hgb < 7 Transfuse 1 pack of platelets of platelets < 20, 000 Watch for any signs and symptoms of bleeding SKIN: Pressure ulcer prevention per facility protocol Specialty mattress as needed ORTHO/REHAB Continue PT/OT PRN: MEDICATIONS Tylenol 650 mg po every 4 hrs for fever zofran 4 mg IV every 6 hrs for n/v Hydralazine 5 mg IV every 4 hrs systolic pressure > 160 bowel regiment: lactulose 20 gm PO BID PRN constipation Supportive measures: Continue GI and DVT prophylaxis Disposition: Pending improvement in clinical condition All questions answered time spent: > 35 min BERNADETTE GAXIOLA MD Jul 30, 2024 14:24
[2024-07-30 15:05] VITALS: BP 130/80; PULSE 62; RESP 22; TEMP 98
--- NOTE | 2024-07-30 17:30 | NUR ---
PATIENT REQUEST TO LEAVE AMA AMA form, reviewed, read aloud, and then signed in presence of 2 nurses.
--- NOTE | 2024-07-30 17:53 | PN ---
SUBJECTIVE: The patient is a 64-year-old male with history of hypertension, hyperlipidemia, COPD, ulcerative colitis, diabetes mellitus, and peripheral vascular disease, who presents with 14 months of left lower extremity pain. The pain has gotten so bad that the patient is hypersensitive even to light touch on his left foot, and he is not able to put weight on his left foot. He gets around with a walker and his right lower extremity. The patient was seen by Cardiology, underwent an angiogram, which revealed an occlusion of his proximal left common iliac artery. He had collaterals, which filled his femoral artery. There was inline flow to his foot from the femoral artery via the anterior tibialis artery. He did have what appeared to be an occluded posterior tibial and peroneal. He did reconstitute his posterior tibialis artery. PHYSICAL EXAMINATION: GENERAL: The patient is a somewhat undernourished elderly male, in no apparent distress until we try to touch his left foot. VITAL SIGNS: Reveal a temperature of 98.1, blood pressure 132/72, pulse is 90, respirations 20, oxygen saturation 97% on room air. HEENT: Reveals normocephalic, atraumatic. Extraocular movements intact. HEART: S1, S2 and regular. LUNGS: Unlabored at rest. ABDOMEN: Flat with positive bowel sounds. He does have a left inguinal hernia. EXTREMITIES: He has a right femoral artery pulse, a right popliteal artery pulse, and a right dorsalis pedis artery pulse. On the left side, he does not have even a left femoral artery pulse. He has atrophy of his muscles on his left lower extremity. His skin on his left foot appears to be intact. He can move his left toes only with discomfort. As mentioned above, he is hypersensitive even to a slightest touch on his left foot. ASSESSMENT AND PLAN: Occluded left common iliac artery. I believe the patient would benefit from a femoral to femoral artery bypass grafting; however, he does have an inguinal hernia. We would like a general surgeon to be consulted to make sure that a femoral-femoral artery graft would not be in the way of them repairing his inguinal hernia. Another surgical option for revascularization of his left lower extremity would be to perform a left axillary to left femoral artery graft. Anticipation for surgery was to stop Plavix. The patient should continue on aspirin and statin therapy. TID: [id number] RECEIPT: [id number]
== END 2024-07-30 17:33 | disposition left against medical advice (07) | DRG 299 ==
LOC: EDH 13:05 → EDHIP 15:15 → 4AH 17:48
PROVIDERS: ADMIT Internal Medicine; ATTEND Internal Medicine
PROC: B4101ZZ Fluoroscopy of Abdominal Aorta using Low Osmolar Contrast (ICD-10-PCS; principal; 2024-07-28)
PROC: B41G1ZZ Fluoroscopy of Left Lower Extremity Arteries using Low Osmolar Contrast (ICD-10-PCS; 2024-07-28)
PROC: B41F1ZZ Fluoroscopy of Right Lower Extremity Arteries using Low Osmolar Contrast (ICD-10-PCS; 2024-07-28)
DX: I70.212 Atherosclerosis of native arteries of extremities with intermittent claudication, left leg (principal); E43 Unspecified severe protein-calorie malnutrition; G45.9 Transient cerebral ischemic attack, unspecified; K51.90 Ulcerative colitis, unspecified, without complications; Z59.00 Homelessness unspecified; I74.5 Embolism and thrombosis of iliac artery; Z68.1 Body mass index [BMI] 19.9 or less, adult; I10 Essential (primary) hypertension; K40.90 Unilateral inguinal hernia, without obstruction or gangrene, not specified as recurrent; E05.90 Thyrotoxicosis, unspecified without thyrotoxic crisis or storm; N40.0 Benign prostatic hyperplasia without lower urinary tract symptoms; E78.00 Pure hypercholesterolemia, unspecified; F17.210 Nicotine dependence, cigarettes, uncomplicated; I71.43 Infrarenal abdominal aortic aneurysm, without rupture; K21.9 Gastro-esophageal reflux disease without esophagitis; J44.9 Chronic obstructive pulmonary disease, unspecified; G89.29 Other chronic pain; Z53.29 Procedure and treatment not carried out because of patient's decision for other reasons; I25.10 Atherosclerotic heart disease of native coronary artery without angina pectoris; Z86.73 Personal history of transient ischemic attack (TIA), and cerebral infarction without residual deficits; Z63.4 Disappearance and death of family member; Z79.82 Long term (current) use of aspirin; Z79.899 Other long term (current) drug therapy; Z83.3 Family history of diabetes mellitus
CPT/HCPCS: 36200; 36415; 71045; 75716; 80048; 80053; 80076; 81003; 82140; 82550; 82948; 83036; 83605; 83735; 83880; 84145; 84484; 85025; 85347; 85610; 85730; 87804; 93005; 93306; 93356; 93926; 93970; 96374; 96375; 99156; 99157; 99285; C1769; C1894; G0378; J1644; J1885; J2250; J2270; J2405; J3010; J3490; Q9967